=== PATIENT | male | born 1950 | race Caucasian/White ===

== ENCOUNTER 2018-02-06 18:09 | Observation (INO) | payer OTHER ==
[2018-02-06 19:01] LABS: ABS Basophils 0.1 10^3/ul (0-0.2); ABS Eosinophils 0.1 10^3/ul (0-0.6); ABS Monocytes 0.5 10^3/ul (0-0.8); ABS Neutrophils 8.9 10^3/ul (1.5-7.7); ABS Nucleated RBC 0 10^3/ul; Hematocrit 41 % (42-52); Lymphocyte % 9.4 % (25-47); Mean Corpuscular HGB Conc 34 g/dl (31-36); Mean Corpuscular Hemoglobin 28 pg (27-31); Mean Corpuscular Volume 83 fL (80-94); Mean Platelet Volume 7.7 um3 (7.4-10.4); Nucleated Red Blood Cells % 0; Platelet Count 175 10^3/ul (150-450); Red Blood Count 4.97 10^6/ul (4.0-5.4); Red Cell Distribution Width 16 % (10.5-15); White Blood Count 10.6 10^3/ul (3.5-10.8)
[2018-02-06 19:06] LABS: INR 0.9 (0.77-1.02)
[2018-02-06 19:20] LABS: EGFR Non-African American 80.6 (>60)
--- NOTE | 2018-02-06 19:43 | RAD ---
Indication: Left arm numbness. CT of the brain was performed without IV contrast. Ventricular structures are midline. No midline shift is noted. The extra-axial spaces are unremarkable. There is no evidence of intracranial mass or hemorrhage. No other high or low density lesions are identified. Mastoid air cells and paranasal sinuses are unremarkable. IMPRESSION: There is no evidence of intracranial mass or hemorrhage.
--- NOTE | 2018-02-06 19:52 | RAD ---
Indication: Left arm and numbness. CT of the cervical spine was obtained in the axial plane. Sagittal and coronal reconstructed images were obtained. The skull base demonstrates no fracture. Degenerative changes of the atlantoaxial joint is noted. At C2-C3 there is no disc protrusion. There is spondylitic ridge flattening the thecal sac. Right uncovertebral joint hypertrophy and right facet arthropathy narrows the right foramen. At C3-C4 there is spondylitic ridge flattening the thecal sac. Right uncovertebral joint hypertrophy and right facet arthropathy noted resulting in right foraminal stenosis. No definite central stenosis is noted. At C4-C5 there is no disc protrusion noted. Spondylitic ridge with broad-based protrusion flattens the thecal sac. There is right uncovertebral joint hypertrophy resulting in right foraminal stenosis at this level. At C5-C6 there is spondylitic ridge with right uncovertebral joint hypertrophy narrowing the right foramen. No central stenosis is noted. At C6-C7 spondylitic ridge flattens the thecal sac. Bilateral uncovertebral joint hypertrophy narrows both foramen. At C7-T1 spondylitic ridge with degenerative disc disease is noted. IMPRESSION: No fracture of the cervical spine is noted. Degenerative disc disease at multiple levels. Uncovertebral joint hypertrophy is noted at multiple levels predominantly on the right side with right foraminal stenosis at multiple levels.
[2018-02-06] MEDS ORDERED: Iodixanol* (CONTRAST) 320 MG/ML 100 ML SDV IV ONE (20:23)
--- NOTE | 2018-02-06 21:33 | RAD ---
Indication: Left arm numbness. Contrast: Administered 80.3 ml of VISAPAQUE 320 mg/ml CTA of the neck and head was performed after IV contrast administration. Coronal and sagittal reconstructed images were obtained. Minimal atherosclerotic aorta is noted. The origins of the great vessels are unremarkable. The common carotid arteries are grossly unremarkable. Calcific plaque is noted at the origin of the right internal carotid artery. The left internal carotid artery demonstrates minimal calcific plaque. Normal caliber internal carotid arteries are noted bilaterally. The vertebral arteries demonstrates normal caliber with no evidence of vertebral artery dissection. There is calcific plaque at the origin of the vertebral arteries bilaterally. Intracranial circulation demonstrates anterior and middle cerebral arteries to be unremarkable. No evidence of aneurysm dilatation is noted. No branch occlusion is identified. Vertebral artery, basilar artery and posterior cerebral arteries are grossly unremarkable. Inferior thyroid lobes are unremarkable. No evidence of soft tissue masses are noted. The lung apices are grossly unremarkable. IMPRESSION: Minimal calcific plaque at the origins of the vertebral arteries and internal carotid arteries. No evidence of carotid artery or vertebral artery dissection is noted. Intracranial circulation demonstrates no evidence of aneurysmal dilatation or branch occlusion.
[2018-02-06] MEDS ORDERED: Clopidogrel TAB* 75 MG PO ONE (21:35)
--- NOTE | 2018-02-06 21:52 | ED ---
Charlie Dai Angela, scribed for Russel Paz MD on 02/06/18 at 1831 . Neurological HPI - HPI Summary HPI Summary: This pt is a 67 y/o male, right hand dominant, presenting to [facility] c/o sudden onset of left arm and hand numbness/tingling since approximately 17:30 today. Pt reports he was sitting down watching TV when he noticed his left arm and hand were numb. He states that he has baseline and chronic numbness on the left 4th and 5th fingers and bottom of left arm after multiple surgeries. Denies left arm weakness, difficulty ambulating, LE numbness/weakness/tingling, slurred speech. He additionally notes neck pain, more on the right side, after driving from [place] to [place]. Pt has taken 2 baby aspirin today. NKDA. - History of Current Complaint Chief Complaint: EDNeurologicalDeficit Stated Complaint: LT SIDE NUMBNESS Time Seen by Provider: 02/06/18 18:23 Hx Obtained From: Patient Onset/Duration: Sudden Onset, Still Present Timing: Sudden Onset Current Severity: Moderate Neurological Deficit Location: LUE Pain Intensity: 0 Character: Numbness/Tingling - on LUE Aggravating: Nothing Alleviating: Nothing Associated Signs and Symptoms: Positive: Pain - neck pain, Numbness. Negative: Unsteady Gait, Headache, Weakness, Impaired Speech - Allergy/Home Medications Allergies/Adverse Reactions: Allergies Allergy/AdvReac Type Severity Reaction Status Date / Time No Known Allergies Allergy Verified 02/06/18 18:16 Home Medications: Home Medications Aspirin EC TAB* [Ecotrin EC Low Dose 81 MG*] 81 mg PO DAILY 02/06/18 [History Confirmed 02/06/18] Finasteride [Proscar] 5 mg PO DAILY 02/06/18 [History Confirmed 02/06/18] Metoprolol Tartrate TAB* [Lopressor TAB*] 50 mg PO DAILY 02/06/18 [History Confirmed 02/06/18] Multivitamins/Minerals TAB* [Theragran/minerals TAB*] 1 tab PO DAILY 02/06/18 [ History Confirmed 02/06/18] Nabumetone TAB* [Relafen TAB*] 500 mg PO BID 02/06/18 [History Confirmed ] Ramipril CAP* [Altace CAP*] 5 mg PO DAILY 02/06/18 [History Confirmed 02/06/18] Simvastatin TAB(NF) [Zocor(NF)] 20 mg PO DAILY 02/06/18 [History Confirmed 02/06] Tamsulosin CAP* [Flomax CAP*] 0.4 mg PO DAILY 02/06/18 [History Confirmed ] PMH/Surg Hx/FS Hx/Imm Hx Endocrine/Hematology History: Reports: Hx Diabetes - Borderline Denies: Hx Sickle Cell Disease Cardiovascular History: Reports: Hx Angina, Hx Coronary Artery Disease, Hx Hypercholesterolemia, Hx Hypertension, Other Cardiovascular Problems/Disorders - stents x2 Denies: Hx Myocardial Infarction, Hx Pacemaker/ICD, Hx Valvular Heart Disease Respiratory History: Denies: Hx Asthma, Hx Chronic Obstructive Pulmonary Disease (COPD), Other Respiratory Problems/Disorders GI History: Reports: Hx Gastroesophageal Reflux Disease - OCCASSIONALLY, Hx Hiatal Hernia - POSSIBLY, SLIDING HERNIA, UNDER CARE OF PCP Denies: Other GI Disorders History: Reports: Hx Benign Prostatic Hyperplasia Denies: Other Problems/Disorders Musculoskeletal History: Reports: Hx Arthritis - HANDS, SOME JOINTS, Other Musculoskeletal History - multiple surgeries to left elbow. unable to rotate. Sensory History: Reports: Hx Contacts or Glasses Denies: Hx Cataracts, Hx Hearing Aid Opthamlomology History: Reports: Hx Contacts or Glasses Denies: Hx Cataracts Neurological History: Denies: Other Neuro Impairments/Disorders - Surgical History Surgery Procedure, Year, and Place: stents x2. multiple surgeries to left elbow Hx Anesthesia Reactions: No Infectious Disease History: No Infectious Disease History: Denies: Traveled Outside the [place] in Last 30 Days - Family History Family History: Father: fatal stroke at age 63 - Social History Alcohol Use: Rare Substance Use Type: Reports: None Hx Tobacco Use: No Smoking Status (MU): Never Smoked Tobacco Review of Systems Negative: Fever, Chills Negative: Chest Pain Negative: Shortness Of Breath Negative: Abdominal Pain Musculoskeletal: Other - neck pain Neurological: Other - NEG: difficulty ambulating, slurred speech Positive: Paresthesia, Numbness. Negative: Weakness All Other Systems Reviewed And Are Negative: Yes Physical Exam - Summary Physical Exam Summary: Appearance: The patient is well-nourished in no acute distress and in no acute pain. Skin: The skin is warm and dry and skin color reflects adequate perfusion. HEENT: The head is normocephalic and atraumatic. The pupils are equal and reactive. The conjunctivae are clear and without drainage. Nares are patent and without drainage. Mouth reveals moist mucous membranes and the throat is without erythema and exudate. The external ears are intact. The ear canals are patent and without drainage. The tympanic membranes are intact. Neck: the neck is supple with full range of motion and non-tender. There are no carotid bruits. There is no neck vein distension. Respiratory: Chest is non-tender. Lungs are clear to auscultation and breath sounds are symmetrical and equal. Cardiovascular: Heart is regular rate and rhythm. There is no murmur or rub auscultated. There is no peripheral edema and pulses are symmetrical and equal. No bruits. Abdomen: The abdomen is soft and non-tender. There are normal bowel sounds heard in all four quadrants and there is no organomegaly palpated. Musculoskeletal: There is no back tenderness noted. Extremities are non-tender with full range of motion. There is good capillary refill. There is no peripheral edema or calf tenderness elicited. Neurological: Patient is alert and oriented to person, place and time. The patient has symmetrical motor strength in all four extremities. Cranial nerves are grossly intact. Deep tendon reflexes are symmetrical and equal in all four extremities. Subjective decreased sensation on LUE. NIH scale of 1. Psychiatric: The patient has an appropriate affect and does not exhibit any anxiety or depression. Triage Information Reviewed: Yes Vital Signs On Initial Exam: Initial Vitals Temp Pulse Resp BP Pulse Ox 99.2 F 88 18 152/83 97 02/06/18 18:12 02/06/18 18:12 02/06/18 18:12 02/06/18 18:12 02/06/18 18:12 Vital Signs Reviewed: Yes Diagnostics - Vital Signs Vital Signs Temp Pulse Resp BP Pulse Ox 02/06/18 18:12 99.2 F 88 18 152/83 97 - Laboratory Lab Results: Lab Results 02/06/18 02/06/18 02/06/18 Range/Units 18:51 18:51 18:51 WBC 10.6 (3.5-10.8) 10^3/ul RBC 4.97 (4.0-5.4) 10^6/ul Hgb 14.0 (14.0-18.0) g/dl Hct 41 L (42-52) % MCV 83 (80-94) fL MCH 28 (27-31) pg MCHC 34 (31-36) g/dl RDW 16 H (10.5-15) % Plt Count 175 (150-450) 10^3/ul MPV 7.7 (7.4-10.4) um3 Neut % (Auto) 84.0 H (38-83) % Lymph % (Auto) 9.4 L (25-47) % Moore % (Auto) 5.0 (0-7) % Eos % (Auto) 1.0 (0-6) % Baso % (Auto) 0.6 (0-2) % Absolute Neuts (auto) 8.9 H (1.5-7.7) 10^3/ul Absolute Lymphs (auto) 1.0 (1.0-4.8) 10^3/ul Absolute Monos (auto) 0.5 (0-0.8) 10^3/ul Absolute Eos (auto) 0.1 (0-0.6) 10^3/ul Absolute Basos (auto) 0.1 (0-0.2) 10^3/ul Absolute Nucleated RBC 0 10^3/ul Nucleated RBC % 0 INR (Anticoag Therapy) 0.90 (0.77-1.02) Sodium 134 L (139-145) mmol/L Potassium 4.0 (3.5-5.0) mmol/L Chloride 100 L (101-111) mmol/L Carbon Dioxide 24 (22-32) mmol/L Anion Gap 10 (2-11) mmol/L BUN 17 (6-24) mg/dL Creatinine 0.93 (0.67-1.17) mg/dL Est GFR ( Amer) 103.6 (>60) Est GFR (Non-Af Amer) 80.6 (>60) BUN/Creatinine Ratio 18.3 (8-20) Glucose 186 H (70-100) mg/dL Lactic Acid (0.5-2.0) mmol/L Calcium 9.0 (8.6-10.3) mg/dL Total Bilirubin 0.40 (0.2-1.0) mg/dL AST 18 (13-39) U/L ALT 15 (7-52) U/L Alkaline Phosphatase 67 (34-104) U/L Troponin I 0.00 (<0.04) ng/mL Total Protein 6.9 (6.4-8.9) g/dL Albumin 4.0 (3.2-5.2) g/dL Globulin 2.9 (2-4) g/dL Albumin/Globulin Ratio 1.4 (1-3) /02/18 Range/Units 18:52 WBC (3.5-10.8) 10^3/ul RBC (4.0-5.4) 10^6/ul Hgb (14.0-18.0) g/dl Hct (42-52) % MCV (80-94) fL MCH (27-31) pg MCHC (31-36) g/dl RDW (10.5-15) % Plt Count (150-450) 10^3/ul MPV (7.4-10.4) um3 Neut % (Auto) (38-83) % Lymph % (Auto) (25-47) % Moore % (Auto) (0-7) % Eos % (Auto) (0-6) % Baso % (Auto) (0-2) % Absolute Neuts (auto) (1.5-7.7) 10^3/ul Absolute Lymphs (auto) (1.0-4.8) 10^3/ul Absolute Monos (auto) (0-0.8) 10^3/ul Absolute Eos (auto) (0-0.6) 10^3/ul Absolute Basos (auto) (0-0.2) 10^3/ul Absolute Nucleated RBC 10^3/ul Nucleated RBC % INR (Anticoag Therapy) (0.77-1.02) Sodium (139-145) mmol/L Potassium (3.5-5.0) mmol/L Chloride (101-111) mmol/L Carbon Dioxide (22-32) mmol/L Anion Gap (2-11) mmol/L BUN (6-24) mg/dL Creatinine (0.67-1.17) mg/dL Est GFR ( Amer) (>60) Est GFR (Non-Af Amer) (>60) BUN/Creatinine Ratio (8-20) Glucose (70-100) mg/dL Lactic Acid 2.0 (0.5-2.0) mmol/L Calcium (8.6-10.3) mg/dL Total Bilirubin (0.2-1.0) mg/dL AST (13-39) U/L ALT (7-52) U/L Alkaline Phosphatase (34-104) U/L Troponin I (<0.04) ng/mL Total Protein (6.4-8.9) g/dL Albumin (3.2-5.2) g/dL Globulin (2-4) g/dL Albumin/Globulin Ratio (1-3) Result Diagrams: 02/06/18 18:51 02/06/18 18:51 Lab Statement: Any lab studies that have been ordered have been reviewed, and results considered in the medical decision making process. - CT Brain CT CT Interpretation: No Acute Changes - IMPRESSION: There is no evidence of intracranial mass or hemorrhage. Dr. Paz has reviewed this radiology report. CT Interpretation Completed By: Radiologist Cervical spine CT CT Interpretation: No Acute Changes - IMPRESSION: No fracture of the cervical spine is noted. Degenerative disc disease at multiple levels. Uncovertebral joint hypertrophy is noted at multiple levels predominantly on the right side with right foraminal stenosis at multiple levels. Dr. Paz has reviewed this radiology report. CT Interpretation Completed By: Radiologist CTA Head/neck CT Interpretation: No Acute Changes - IMPRESSION: Minimal calcific plaque at the origins of the vertebral arteries and internal carotid arteries. No evidence of carotid artery or vertebral artery dissection is noted. Intracranial circulation demonstrates no evidence of aneurysmal dilatation or branch occlusion. Dr. Paz has reviewed this radiology report. CT Interpretation Completed By: Radiologist - EKG 18:40 Cardiac Rate: NL - at 78 bpm EKG Rhythm: Sinus Rhythm NIH Scale - NIH Scale Level of Consciousness: Alert/Keenly Responsive Ask Patient the Month and His/Her Age: Both Correct Ask Pt to Open/Close Eyes and Agricultural Purchasing Agent/Release Non-Paretic Hand: Both Correctly Best Gaze (Only Horizontal Eye Movement): Normal Visual Field Testing: No Visual Loss Facial Paresis-Pt to Smile & Close Eyes or Grimace Symmetry: Normal/Symmetrical Motor Function - Right Arm: No Drift-Holds 10 Seconds Motor Function - Left Arm: No Drift-Holds 10 Seconds Motor Function - Right Leg: No Drift-Holds 10 Seconds Motor Function - Left Leg: No Drift-Holds 10 Seconds Limb Ataxia-Must be out of Proportion to Weakness Present: Absent Sensory (Use Pinprick to Test Arms/Legs/Trunk/Face): Pinprick Less on Affected Best Language (Describe Picture, Name Items): No Aphasia Dysarthria (Read Several Words): Normal Extinction and Inattention: No Abnormality Total Score: 1 Course/Dx - Course Course Of Treatment: Mr. Mast presents complaining of left arm numbness and tingling which started at 1730 hrs. He was sitting on the couch with his arm propped on the side and went to move it and noticed the tingling. He chronically has numbness in his left fourth and fifth fingers and medial aspect of his arm related to surgery on his medial elbow. Now than numbness and tingling has extended to the thumb index and middle finger as well as the lateral aspect of his forearm. He does have a lot of neck pain complaining of having driven up from [place] staying at motels and having increasing neck pain during the trip which has continued subsequently for the few days. His NIH stroke scale is 1 for decreased sensation subjectively in the left forearm. He is not a TPA candidate secondary to a low NIH stroke scale and a low impact deficit. CT and CTA were negative as were labs and EKG. He is being admitted to the hospitalist service for further workup. - Diagnoses Provider Diagnoses: Arm paresthesia, left - Physician Notifications Discussed Care Of Patient With: Mery Shaffer Time Discussed With Above Provider: 20:02 Instructed by Provider To: Other - I discussed pt care with Dr. hSaffer, neurologist, who reports to do a Telestroke. [20:41] I discussed with Dr. Bennett, neurologist from [facility], who reports pt is not a candidate for tpa. [20:49] I spoke with Dr. Pablo, hospitalist, who accepted the pt for admission. Discharge - Sign-Out/Discharge Documenting (check all that apply): Discharge/Admit/Transfer - Admit - Discharge Plan Condition: Stable Disposition: ADMITTED TO [facility] Referrals: Julio Almeida MD [Primary Care Provider] - - Billing Disposition and Condition Condition: STABLE Disposition: Admitted to [facility] The documentation as recorded by the Charlie gilliam Angela accurately reflects the service I personally performed and the decisions made by me, Russel Paz MD.
[2018-02-06] MEDS ORDERED: Acetaminophen TAB* 325 MG PO PRN (22:00)
[2018-02-06] MEDS: Heparin VIAL(*) 5000 UNITS/ML VIAL (FIVE THOUSAND) SUBCUT SCH (23:09)
[2018-02-07 00:22] LABS: Urine Appearance Clear; Urine Blood Negative (Negative); Urine Color Straw; Urine Ketones Negative (Negative); Urine Protein Negative (Negative); Urine Specific Gravity 1.023 (1.010-1.030); Urine Urobilinogen Negative (Negative)
[2018-02-07] MEDS: Heparin VIAL(*) 5000 UNITS/ML VIAL (FIVE THOUSAND) SUBCUT SCH ×2 (05:17→15:35)
--- NOTE | 2018-02-07 07:37 | HP ---
CC: Dr. Almeida; Dr. Hermosillo; Dr. Mery Shaffer * HISTORY AND PHYSICAL: DATE OF ADMISSION: 02/06/18 TIME OF EVALUATION: 9 p.m. PRIMARY CARE PROVIDER: Dr. Almeida. TRIM ATTACHER: Dr. Hermosillo. CONSULTING NEUROLOGIST: Dr. Mery Shaffer. CHIEF COMPLAINT: My left arm is numb. HISTORY OF PRESENT ILLNESS: Mr. Mast is a 67-year-old male with a past medical history of coronary artery disease, status post bare metal stents to his RCA in 2010, hypertension, GERD, hiatal hernia, hyperlipidemia, BPH, status post multiple surgeries to his left elbow who presents to the emergency room with complaints of sudden onset of left arm numbness. The patient states that many years ago he had a fall on concrete and broke his left elbow. 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 He underwent an ulnar nerve transposition, excision of heterotropic bone from proximal ulna, proximal radius, distal humerus and radical excision of capsule by Dr. Keaton Bass in 2012. He states that since the surgery, he has had chronic numbness on his left fourth and fifth fingers extending to the medial aspect of his hand and forearm all the way up to his elbow. The patient just returned from a trip to [place] and it took him 2-1/[address] He stopped to sleep in hotels and states that he developed a neck "kink." He has been taking antiinflammatories for it but the neck continues to bother him. Today, he was sitting on his recliner watching TV when around 6 p.m. he developed sudden onset of left arm numbness from his shoulder down and he states that this is new to him, never had it happened before. He took an extra aspirin, waited 10 minutes but as the symptoms persisted he came to the emergency room for further evaluation. He denies any other neurological deficits. Despite the numbness he had preserved movement to his left arm. The patient denies any changes to his face, to his leg, no localized weakness, no speech or vision changes. The patient denies headache, nausea, vomiting, diarrhea, shortness of breath, cough or urinary complaints. PAST MEDICAL HISTORY: 1. Coronary artery disease, status post two bare-metal stents to his RCA. 2. Hypertension. 3. GERD. 4. Hiatal hernia. 5. Hyperlipidemia. 6. BPH. PAST SURGICAL HISTORY: 1. Multiple left elbow surgeries as described above. 2. Status post tonsillectomy. MEDICATIONS: 1. Aspirin 81 mg p.o. daily. 2. Finasteride 5 mg p.o. daily. 3. Metoprolol tartrate 50 mg p.o. daily. 4. Multivitamins 1 tablet p.o. daily. 5. Nabumetone 500 mg p.o. b.i.d. 6. Ramipril 5 mg p.o. daily. 7. Simvastatin 20 mg p.o. daily. 8. Tamsulosin 0.4 mg p.o. daily. ALLERGIES: No known drug allergies. FAMILY HISTORY: The patient has a strong family history of stroke. His father of a stroke in his 60s. His brother had a stroke in his 50s and his grandfather also had a stroke in his 50s. SOCIAL HISTORY: The patient denies any history of tobacco or alcohol or drug use. 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 Surrogate decision maker is his Heather Mast, phone number is [phone]. REVIEW OF SYSTEMS: A 14-point review of systems was performed and all the pertinent negative and positive findings are in the HPI. PHYSICAL EXAMINATION GENERAL: The patient is a pleasant gentleman sitting up in the ED stretcher in no acute distress. VITAL SIGNS: Temperature 99.2, heart rate is 68, respiratory rate is 13, oxygen saturation is 96% on room air, blood pressure is 132/79. HEENT: Pupils are equal, extraocular movements intact. Moist mucous membranes. NECK: No JVD. No audible carotid bruits. CHEST: Breath sounds present bilaterally with no added sounds. CVS: Normal S1, S2, regular rate and rhythm. ABDOMEN: Soft. Bowel sounds present. EXTREMITIES: No edema. NEUROLOGIC: He is alert and oriented x3. Face is symmetric. Cranial nerves II through XII are grossly intact. Power is 5/5 in both upper extremities and right lower extremity. Left lower extremity power 3/5 but this is limited due to hip pain that the patient states is chronic due to known severe arthritis. Finger-to- nose is normal in both sides. The only neurological change in my physical examination is changing sensation on the left side from his hand all the way up to this left shoulder. LABORATORY AND IMAGING DATA: The patient had a CBC that showed WBC of 10.6, hemoglobin of 14, hematocrit of 41. Platelets of 175 with 84% neutrophils. INR was 0.9. Chemistry showed a sodium of 134, potassium of 4, chloride of 100. Bicarb was 24, BUN is 17, creatinine of 0.93, glucose of 186, lactic acid of 2, calcium 9.0. LFTs are normal. Troponin was 0. CT of the brain without contrast showed no evidence of intracranial mass or hemorrhage. CT of the cervical spine showed no fracture of the cervical spine is noted. Degenerative disk disease at multiple levels. Uncovertebral joint hypertrophy is noted at multiple levels predominantly on the right side with right foraminal stenosis at multiple levels. CTA of the head and neck showed minimal calcific plaque at the origins of the vertebral arteries and internal carotid arteries. No evidence of carotid artery or vertebral artery dissection is noted. Intracranial circulation demonstrates no evidence of aneurysmal dilatation or branch occlusion. The patient had an EKG done on 02/06/18 at 1840 that showed normal sinus rhythm at 78 beats per minute with T-wave inversions in III and flat T waves in aVF and those are unchanged from his prior EKG from 2011. ASSESSMENT AND PLAN: Mr. Mast is a 67-year-old male with past medical history of coronary artery disease, status post two bare metal stents to the RCA , hypertension, gastroesophageal reflux disease, hiatal hernia, dyslipidemia, benign prostatic hyperplasia, status post 5 surgeries to his left elbow with chronic numbness in the ulnar nerve distribution who presents to the emergency room with complaints of left arm numbness from his shoulder down. 1. CVA versus cervical radiculopathy: The patient had a recent trip to [place] and is complaining of worsening cervicalgia and his worsening left arm numbness at his point could be related to a cervical radiculopathy but I am concerned with sudden onset of his symptoms that could suggest an ischemic event. His workup so far in the emergency room is negative and he will be admitted to telemetry floor as observation for further workup. We are going to check a lipid profile, hemoglobin A1c as the patient was mildly hypoglycemic in the emergency room. An echocardiogram with bubble study and an MRI of the brain without contrast. If this was a stroke, it is probably a small right parietal one and it might not be seen in an MRI but it is still worth pursuing it. Neurology consultation was requested with Dr. Shaffer. As per emergency room provider, he had a telemedicine consultation with [facility] neurologist and it was felt that the patient was not a candidate for TPA as his NIH stroke scale was only 1 and his left arm numbness was already showing signs of improvement. The patient is chronically on low-dose aspirin and statin. I discussed with Dr. Shaffer and at this point we are going to add Plavix until his workup is completed. The patient will be monitored on Telemetry and he will also have neurological checks q.2 hours. 2. Coronary artery disease: Appears to be stable. We will continue his aspirin, metoprolol and statin. 3. Hypertension: Controlled. We will continue metoprolol. 4. BPH: The patient has no complaints at this time. We will continue finasteride and tamsulosin. 5. DVT prophylaxis: The patient has a score of 2 on DVT Prophylaxis Risk Assessment Guide and he will be started on subcutaneous heparin. 6. Code status: Full. TIME SPENT: Approximately 60 minutes was spent with the patient and interview, medical records review, physical examination to complete this admission; more than half this time was spent [id number] with patient in coordination of care. [id number]/[facility] #: [id number] CAITLIN
[2018-02-07] MEDS ORDERED: Finasteride TAB* 5 MG PO SCH (09:00)
[2018-02-07] MEDS ORDERED: Tamsulosin CAP* 0.4 MG PO SCH (09:00)
[2018-02-07] MEDS ORDERED: Atorvastatin* 10 MG TAB PO SCH (09:00)
[2018-02-07] MEDS ORDERED: Clopidogrel TAB* 75 MG PO SCH (09:00)
[2018-02-07] MEDS ORDERED: Ramipril CAP* 5 MG PO SCH (09:00)
[2018-02-07] MEDS ORDERED: Multivitamins/Minerals TAB PO SCH (09:00)
[2018-02-07] MEDS ORDERED: Nabumetone TAB* 500 MG PO SCH (09:00)
[2018-02-07] MEDS ORDERED: Metoprolol Tartrate TAB* 50 mg PO SCH (09:00)
[2018-02-07] MEDS ORDERED: Aspirin EC TAB* 81 MG TAB.EC PO SCH (09:00)
--- NOTE | 2018-02-07 11:29 | RAD ---
HISTORY: CVA COMPARISONS: February 06 TECHNIQUE: The following sequences were obtained of the head: Sagittal T1-weighted images, axial T2-weighted images, axial FLAIR images, axial susceptibility weighted images, axial T1-weighted images. Additionally, axial diffusion-weighted images were obtained with calculated apparent diffusion coefficients. FINDINGS: HEMORRHAGE/INFARCT: There is a small focus of restricted diffusion within the cortex of the right postcentral gyrus. Elsewhere, there is no hemorrhage or acute infarct. MASSES/SHIFT: There is no mass or shift. EXTRA-AXIAL SPACES/MENINGES: There are no extra-axial fluid collections. SULCI AND VENTRICLES: The sulci and ventricles are normal in size and position for the patient's stated age. CEREBRUM: There are few scattered small foci of elevated T2/FLAIR signal within the periventricular and subcortical white matter. BRAINSTEM: There are no focal parenchymal abnormalities. CEREBELLUM: There are no focal parenchymal abnormalities. The cerebellar tonsils are normal in size and position. SELLA: The sella is normal. PINEAL: The pineal region is clear. CP ANGLE/TEMPORAL BONES: The labyrinthine structures are grossly normal. VESSELS: Normal flow-voids are noted within the visualized vertebral vasculature. DIFFUSION ABNORMALITIES: As noted above, there is a small focus of restricted diffusion within the cortex of the post central gyrus on the right. PARANASAL SINUSES/MASTOIDS: The paranasal sinuses are clear. ORBITS: The orbits are unremarkable. BONES AND SOFT TISSUE: No bone or soft tissue abnormalities are noted. OTHER: None IMPRESSION: RESTRICTED DIFFUSION WITHIN THE CORTEX OF THE POST CENTRAL GYRUS ON THE RIGHT CONSISTENT WITH SUBACUTE NONHEMORRHAGIC INFARCT.
--- NOTE | 2018-02-07 11:56 | ECHO ---
Patient: TEE CAT [facility] Rec#: [id number] : 1950 Date: 02/07/2018 Age: 67y Height: 175.26 cm / 69.0 in Weight: 74.84 kg / 164.9 lbs Sex: M BSA: 1.9 Room#: 432 Admit Date#: 02/06/2018 Type: Inpatient Referring: Page Basilio MD Reading: Jv Braden DO Reading: Jv Braden DO Technician Inventory Specialist: Anh Rae RDCS CC: Julio Almeida MD Transthoracic Echocardiogram Indication: CVA / TIA. BP: 117/65 HR: 70 Rhythm: NSR Findings History: CAD, s/p 2 RCA stents, DM, HTN, HLD, and hiatal hernia. Technical Comments: The study quality is fair. Completed at 1015. Left Ventricle: The left ventricular chamber size is normal. There is a prominent septal knuckle. Global left ventricular wall motion and contractility are within normal limits. There is normal left ventricular systolic function. The estimated ejection fraction is 60-65%. There is no consistent Doppler evidence of clinically significant diastolic dysfunction. Left Atrium: The left atrium is mildly dilated. Right Ventricle: The right ventricular chamber size and systolic function are within normal limits. Right Atrium: The right atrium is mildly dilated. Interatrial septum appears intact without evidence of shunting. The bubble study is negative. A patent foramen ovale is not demonstrated with color Doppler and agitated contrast. Aortic Valve: The aortic valve is trileaflet. The aortic valve leaflets are mildly thickened. There is no evidence of aortic regurgitation. There is no evidence of aortic stenosis. Mitral Valve: The mitral valve leaflets are mildly thickened. There is mild mitral regurgitation. There is no evidence of mitral stenosis. Tricuspid Valve: The tricuspid valve leaflets are normal. There is trace to mild tricuspid regurgitation. No pulmonary hypertension is noted. There is no tricuspid stenosis. Pulmonic Valve: The pulmonic valve appears normal. There is mild pulmonic regurgitation. There is no pulmonic stenosis. Pericardium: There is no significant pericardial effusion. Aorta: There is mild dilatation of the ascending aorta. There is no dilatation of the aortic arch. The aortic root is normal in size. Pulmonary Artery: The main pulmonary artery is not well visualized. Venous: The inferior vena cava is dilated. There is a greater than 50% respiratory change in the inferior vena cava dimension. Contrast: Normal saline was used as contrast for the bubble study. Images 10 and 11. Intravenous contrast was used to help determine presence of intracardiac shunting. Conclusions The left ventricular chamber size is normal. There is a prominent septal knuckle. Global left ventricular wall motion and contractility are within normal limits. There is normal left ventricular systolic function. The estimated ejection fraction is 60-65%. The left atrium is mildly dilated. The right ventricular chamber size and systolic function are within normal limits. No more than mild valvular regurgitation noted The agitated saline "bubble study" is negative. There is mild dilatation of the ascending aorta. Compared to prior study from 09/2013, no clinically significant changes noted. Bubble study performed this study. Measurements Name Value Normal Range RVIDd (AP) 2D 3.3 cm (0.9 - 2.6) RVDdMajor (2D) 4.2 cm (2.2 - 4.4) RAd ISD 4CH 5 cm (3.4 - 4.9) RA (A4C)W 3.8 cm (2.9 - 4.6) IVSd (2D) 1 cm (0.6 - 1) LVPWd (2D) 1 cm (0.6 - 1) LVIDd (2D) 4.4 cm (3.6 - 5.4) LVIDs (2D) 2.3 cm - LV FS (2D) 49 % (25 - 45) Aortic Annulus 2 cm (1.4 - 2.6) Ao root diameter (2D) 3.2 cm (2.1 - 3.5) Ascending Ao 3.8 cm (2.1 - 3.4) Aortic arch 2.4 cm (1.8 - 3.4) LA dimension (AP) 2D 3.8 cm (2.3 - 3.8) LAd ISD 4CH 5.4 cm (2.9 - 5.3) LA ISD 4CH W 4.6 cm (2.5 - 4.5) Name Value Normal Range LA ESV SP 4CH (A/L) 49 ml - LA ESV SP 2CH (A/L) 60 ml - LA ESV BP (A/L) 57 ml - LA ESV BP (A/L) index 30 ml/m2 - LA ESV SP 4CH (MOD) 45 ml - LA ESV SP 2CH (MOD) 56 ml - Name Value Normal Range MV E-wave Vmax 0.72 m/sec - MV deceleration time 230 msec - MV A-wave Vmax 0.62 m/sec - MV E:A ratio 1.17 ratio - LV septal e' Vmax 0.06 m/sec - LV lateral e' Vmax 0.11 m/sec - LV E:e' septal ratio 12 ratio - LV E:e' lateral ratio 6.55 ratio - Name Value Normal Range AV Vmax 1.1 m/sec - AV VTI 23.62 cm - AV peak gradient 4.5 mmHg - AV mean gradient 2.97 mmHg - LVOT Vmax 0.97 m/sec - LVOT VTI 21.85 cm - LVOT peak gradient 3.75 mmHg - LVOT mean gradient 2.01 mmHg - SAUMYA Vmax 0.83 m/sec - Name Value Normal Range TR Vmax 2.4 m/sec - TR peak gradient 23 mmHg - RAP 8 mmHg - RVSP 31 mmHg - IVC diameter 2.4 cm - Name Value Normal Range PV Vmax 0.88 m/sec - PV peak gradient 3.12 mmHg - KS end-diastolic Vmax 0.9 m/sec -
--- NOTE | 2018-02-07 14:58 | PN ---
Subjective Date of Service: 02/07/18 Interval History: Numbness L arm nearly gone, better than yesterday. No new c/o. Residual numbness L 4th and 5th fingers from prior L elbow surgeries. Objective Active Medications: Acetaminophen (Tylenol Tab*) 650 mg PO Q6H PRN PRN Reason: pain/fever Aspirin (Aspirin Ec Tab*) 81 mg PO DAILY [facility] Last Admin: 02/07/18 09:54 Dose: 81 mg Atorvastatin Calcium (Lipitor*) 10 mg PO DAILY [facility] Last Admin: 02/07/18 09:53 Dose: 10 mg Clopidogrel Bisulfate (Plavix Tab*) 75 mg PO DAILY [facility] Last Admin: 02/07/18 09:54 Dose: 75 mg Finasteride (Proscar Tab*) 5 mg PO DAILY [facility] Last Admin: 02/07/18 09:54 Dose: 5 mg Heparin Sodium (Porcine) (Heparin Vial(*)) 5,000 units SUBCUT Q8HR [facility] Last Admin: 02/07/18 05:17 Dose: 5,000 units Metoprolol Tartrate (Lopressor Tab*) 50 mg PO DAILY [facility] Last Admin: 02/07/18 09:54 Dose: 50 mg Multivitamins/Minerals (Theragran/Minerals Tab*) 1 tab PO DAILY [facility] Last Admin: 02/07/18 09:53 Dose: 1 tab Nabumetone (Relafen Tab*) 500 mg PO BID [facility] Last Admin: 02/07/18 09:54 Dose: 500 mg Ramipril (Altace Cap*) 5 mg PO DAILY [facility] Last Admin: 02/07/18 09:53 Dose: 5 mg Tamsulosin HCl (Flomax Cap*) 0.4 mg PO DAILY [facility] Last Admin: 02/07/18 09:54 Dose: 0.4 mg Vital Signs - 8 hr 02/07/18 07:14 Temperature 98.0 F Pulse Rate 70 Respiratory 16 Rate Blood Pressure 133/78 (mmHg) O2 Sat by Pulse 99 Oximetry Oxygen Devices in Use Now: None Appearance: Alert, standing by his bed. In good spirits. Looks comfortable. Eyes: No Scleral Icterus Extremities: No Edema, No Clubbing, Cyanosis, - - R tibia hard proturberance in mid-shaft, about 2 cm diameter. No calf tenderness, no edema. Skin: No Rash or Ulcers, No Nodules or Sclerosis, - Neurological: Alert and Oriented x 3, NL Sensation - Handgrips strong BL. No tremor. No facial asymmetry. Result Diagrams: 02/06/18 18:51 02/06/18 18:51 Additional Lab and Data: Lab Results 02/06/18 02/06/18 02/06/18 Range/Units 18:51 18:51 18:51 WBC 10.6 (3.5-10.8) 10^3/ul RBC 4.97 (4.0-5.4) 10^6/ul Hgb 14.0 (14.0-18.0) g/dl Hct 41 L (42-52) % MCV 83 (80-94) fL MCH 28 (27-31) pg MCHC 34 (31-36) g/dl RDW 16 H (10.5-15) % Plt Count 175 (150-450) 10^3/ul MPV 7.7 (7.4-10.4) um3 Neut % (Auto) 84.0 H (38-83) % Lymph % (Auto) 9.4 L (25-47) % [place] % (Auto) 5.0 (0-7) % Eos % (Auto) 1.0 (0-6) % Baso % (Auto) 0.6 (0-2) % Absolute Neuts (auto) 8.9 H (1.5-7.7) 10^3/ul Absolute Lymphs (auto) 1.0 (1.0-4.8) 10^3/ul Absolute Monos (auto) 0.5 (0-0.8) 10^3/ul Absolute Eos (auto) 0.1 (0-0.6) 10^3/ul Absolute Basos (auto) 0.1 (0-0.2) 10^3/ul Absolute Nucleated RBC 0 10^3/ul Nucleated RBC % 0 INR (Anticoag Therapy) 0.90 (0.77-1.02) Sodium 134 L (139-145) mmol/L Potassium 4.0 (3.5-5.0) mmol/L Chloride 100 L (101-111) mmol/L Carbon Dioxide 24 (22-32) mmol/L Anion Gap 10 (2-11) mmol/L BUN 17 (6-24) mg/dL Creatinine 0.93 (0.67-1.17) mg/dL Est GFR ( Amer) 103.6 (>60) Est GFR (Non-Af Amer) 80.6 (>60) BUN/Creatinine Ratio 18.3 (8-20) Glucose 186 H (70-100) mg/dL Lactic Acid (0.5-2.0) mmol/L Calcium 9.0 (8.6-10.3) mg/dL Total Bilirubin 0.40 (0.2-1.0) mg/dL AST 18 (13-39) U/L ALT 15 (7-52) U/L Alkaline Phosphatase 67 (34-104) U/L Troponin I 0.00 (<0.04) ng/mL Total Protein 6.9 (6.4-8.9) g/dL Albumin 4.0 (3.2-5.2) g/dL Globulin 2.9 (2-4) g/dL Albumin/Globulin Ratio 1.4 (1-3) /02/18 Range/Units 18:52 WBC (3.5-10.8) 10^3/ul RBC (4.0-5.4) 10^6/ul Hgb (14.0-18.0) g/dl Hct (42-52) % MCV (80-94) fL MCH (27-31) pg MCHC (31-36) g/dl RDW (10.5-15) % Plt Count (150-450) 10^3/ul MPV (7.4-10.4) um3 Neut % (Auto) (38-83) % Lymph % (Auto) (25-47) % [place] % (Auto) (0-7) % Eos % (Auto) (0-6) % Baso % (Auto) (0-2) % Absolute Neuts (auto) (1.5-7.7) 10^3/ul Absolute Lymphs (auto) (1.0-4.8) 10^3/ul Absolute Monos (auto) (0-0.8) 10^3/ul Absolute Eos (auto) (0-0.6) 10^3/ul Absolute Basos (auto) (0-0.2) 10^3/ul Absolute Nucleated RBC 10^3/ul Nucleated RBC % INR (Anticoag Therapy) (0.77-1.02) Sodium (139-145) mmol/L Potassium (3.5-5.0) mmol/L Chloride (101-111) mmol/L Carbon Dioxide (22-32) mmol/L Anion Gap (2-11) mmol/L BUN (6-24) mg/dL Creatinine (0.67-1.17) mg/dL Est GFR ( Amer) (>60) Est GFR (Non-Af Amer) (>60) BUN/Creatinine Ratio (8-20) Glucose (70-100) mg/dL Lactic Acid 2.0 (0.5-2.0) mmol/L Calcium (8.6-10.3) mg/dL Total Bilirubin (0.2-1.0) mg/dL AST (13-39) U/L ALT (7-52) U/L Alkaline Phosphatase (34-104) U/L Troponin I (<0.04) ng/mL Total Protein (6.4-8.9) g/dL Albumin (3.2-5.2) g/dL Globulin (2-4) g/dL Albumin/Globulin Ratio (1-3) Assess/Plan/Problems-Billing Assessment: - Patient Problems (1) CVA (cerebral vascular accident) Current Visit: Yes Status: Acute Code(s): I63.9 - CEREBRAL INFARCTION, UNSPECIFIED SNOMED Code(s): 440856603 Comment: Non-hemorrhagic CVA R post-central gyrus on MRI scan. Discussed with Dr. Fernandes. Continue ASA and clopidogrel for 1 month, then clopidogrel alone. (2) CAD (coronary artery disease) Current Visit: Yes Status: Acute Code(s): I25.10 - ATHSCL HEART DISEASE OF [place] CORONARY ARTERY W/O ANG PCTRS SNOMED Code(s): 98346304 Comment: Continue ASA, clopidogrel (for 30 days), metoprolol, statin. (3) HTN (hypertension) Current Visit: Yes Status: Acute Code(s): I10 - ESSENTIAL (PRIMARY) HYPERTENSION SNOMED Code(s): 51788129 Comment: Continue ramipril, metoprolol.
[2018-02-07 16:53] VITALS: BP 110/67
--- NOTE | 2018-02-08 01:10 | CONS ---
CC: Dr. Almeida * NEUROLOGY CONSULTATION: DATE OF CONSULT: 02/07/18 LOCATION: He is an inpatient in room 432. REFERRING PROVIDER: Dr. Vickers. CHIEF COMPLAINT: Left arm numbness. HISTORY OF PRESENT ILLNESS: Jose Mast is a 67-year-old right-handed man who was in his usual state of health yesterday at home when his left arm suddenly went numb. He has chronic numbness in ulnar distribution of the left hand from multiple elbow surgeries and subsequent ulnar neuropathy, but this time he felt like his whole arm from at least his elbow down went numb. He had no problems using the arm over and above his chronic problems with it. Specifically, it did not feel weak or any particularly clumsy. He did not notice any numbness of his face or legs nor any difficulty with speech or walking. He presented to the emergency room particularly as he has a very strong family history of strokes. In the emergency room, his exam by Dr. Ornelas was notable for diminished sensation diffusely in the left arm all the way to the shoulder. He was admitted for further evaluation. Today, he feels that the numbness is better than it was yesterday, but still not the way it was before yesterday. There is a little bit of increased numbness in the dorsal aspect of the left forearm. There is no change in coordination or strength of that arm. He still has no symptoms in the face or lower extremities. There is no prior history of cerebrovascular events. PAST MEDICAL HISTORY: Notable for hypertension; borderline diabetes; gastroesophageal reflux; hyperlipidemia; coronary artery disease, status post stenting; BPH. MEDICATIONS: At home consist of: 1. Aspirin 81 mg p.o. daily. 2. Finasteride 5 mg p.o. daily. 3. Metoprolol 50 mg p.o. daily. 4. Nabumetone 500 mg p.o. b.i.d. 5. Ramipril 5 mg p.o. daily. 6. Simvastatin 20 mg p.o. daily. 7. Tamsulosin 0.4 mg p.o. daily. ALLERGIES: He does not have any drug allergies. FAMILY HISTORY: Notable for 3 family members suffering strokes, younger brother after complications of stroke in his 50s. SOCIAL HISTORY: He does not smoke. He does not drink alcohol. 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 REVIEW OF SYSTEMS: Negative for headaches, falls, difficulty with speech or word- finding, change in gait. He has chronic left hip pain. He has recurrent retrosternal pressure felt to be gastrointestinal. He is in the midst of a gastro-intestinal workup at the [facility]. There is no history of deep vein thrombosis. He has noted some edema in his right ankle since a prolonged trip. They just came back from [place] few days ago and they drove for several days staying at hotels. He had some neck tightness and discomfort and some low back pain that he associates with it. He had elevated hemoglobin A1c and got his weight down to 150 pounds about a year or so ago and it improved. He has put the 10 pounds back on. He has not had any recent shortness of breath. He is physically very active according to his , "more than he should be." PHYSICAL EXAM: He is well nourished and well hydrated with perhaps slight central obesity. Temperature 99.2, blood pressure is most recently 135/75, heart rate in the 70s and seems regular. Respiratory rate 12, oxygen saturation is 96% on room air. Heart is in a regular rhythm and I do not hear any murmurs. Lungs are clear bilaterally. Carotid pulses are symmetrical and there are no cervical bruits. Left elbow is deformed and has limited ability to supinate. There is no edema in the legs currently. There is no calf pain. Neurological Exam: Pupils react equally from about 3.5 to 2.5 mm symmetrically. Eye movements and visual caldwell are normal. Funduscopic exam reveals little bit of arterial tortuosity, but is unremarkable. Facial musculature is symmetric. Facial sensation to temperature, pin, and light touch are all symmetric. Palate and tongue appear normal, tongue protrudes in the midline and palate rises symmetrically. There is no dysarthria. He is little hard of hearing. Neck strength is normal. Motor exam is normal in the upper and lower extremities proximally and distally with the exception of difficulty testing about the left hip because of pain. Also, he has atrophy and fasciculations in the left first dorsal interosseous. He has mild first dorsal interosseous weakness bilaterally, but otherwise pretty good strength in the upper and lower extremities. Phgyhi-ev-htam maneuver is normal on the right. Lshrfe-la-sjnd maneuver is limited because of difficulty with mobility about the arm. There is no tremor. Heel-to- fry maneuver is normal bilaterally. Gait and station are normal. Romberg sign is absent. Sensory exam is notable for hyperesthesia to pin in the left ulnar distribution. There is a little of hyperesthesia on the dorsum of the left forearm as well. Other than that, sensation to light touch, vibration, and proprioception are normal in all 4 limbs. Reflexes are intact and symmetric other than absent left triceps reflex. Plantar responses are flexor bilaterally. He is alert and oriented with intact recent and remote memory. He has good attention and concentration and adequate fund of knowledge. Language is fluent. DIAGNOSTIC STUDIES/LAB DATA: Includes an MRI of the brain done yesterday interpreted as showing a small area of restricted diffusion in the right postcentral gyrus consistent with acute to subacute infarction. I reviewed the images and I agree. There is also a very small amount of nonspecific white matter changes probably indicative of small vessel disease. There are no hemorrhages. CT of the brain was unremarkable, CT angiogram of the brain is likewise unremarkable. There is some calcification in the aortic bifurcations, but no stenosis. Transthoracic echocardiogram interpreted as unremarkable. Bubble study was negative. Other laboratory data notable for normal chemistry profile, glucose yesterday was 186 and hemoglobin A1c this morning is 6.2%. Lipid profile notable for cholesterol 121 this morning, LDL 48. Clopidogrel 75 mg was added to his medical regimen last evening. 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 He does not appear to have a cardioembolic source and he does not have a patent foramen ovale since in spite of his travel it seems unlikely that he has a paradoxical embolus. I agree with adding Plavix to aspirin. I recommend continuing it for 30 days and then switching to Plavix monotherapy. His blood pressure is under good control as is his lipid profile. His blood sugar could probably be addressed perhaps with attempt at weight loss again. I am not sure he needs medical therapy for it, but it is a vascular risk factor which needs to be followed. I think he will have an outpatient noninvasive vascular study of the legs just to make sure he does not have evidence of phlebitis. If he does, then it might be worth doing a transesophageal echocardiogram to make sure we are not missing a patent foramen ovale. I have explained the results of the studies to Jose and his . I recommend that he see me in followup in 3 to 4 weeks and we will switch him to Plavix monotherapy if the rest of his evaluation and clinical course remain benign. I have discussed my impression with Dr. Vickers. [id number]/[facility] #: [id number] MTDJennifer
--- NOTE | 2018-02-08 12:29 | DS ---
CC: Dr. Almeida; Dr. Fernandes DISCHARGE SUMMARY: DATE OF ADMISSION: 02/06/18 DATE OF DISCHARGE: 02/07/18 HISTORY OF PRESENT ILLNESS/HOSPITAL COURSE: This 67-year-old man presented with sudden onset of left arm numbness. He has chronically some numbness from the elbow to the left fourth and fifth fingers related to multiple prior left elbow surgeries. This was a sudden onset of numbness from his shoulde r to encompassing his entire arm and all fingers of his hand. He was evaluated with a CT scan of the cervical spine, head CTA, transthoracic echocardiogram, and br ain MRI. The studies were essentially negative except for the MRI, which showed a subacute nonhemorr hagic infarction in the right postcentral gyrus. Echocardiogram had a negative bubble study, normal ejection fraction. The patient improved significantly overnight in the hospital, although he still has a little residual numbness. There were no new problems. Dr. Fernandes saw him in consultation. He was started on clop idogrel in the emergency room and he will be continued on this. Aspirin will be continued for a sharona h. He will follow up with Dr. Fernandes and Dr. Almeida. FINAL DIAGNOSES: 1. Cerebrovascular accident. 2. Coronary artery disease. 3. Hypertension. 4. Prediabetes with A1c of 6.2. DISCHARGE MEDICATIONS: 1. Clopidogrel 75 mg daily. 2. Multivitamin daily. 3. Tamsulosin 0.4 mg daily. 4. Simvastatin 20 mg daily. 5. Finasteride 5 mg daily. 6. Aspirin 81 mg daily. 7. Ramipril 5 mg daily. 8. Nabumetone 500 mg b.i.d. 9. Metoprolol tartrate 50 mg daily. [id number]/[facility] #: [id number]
== END 2018-02-07 16:55 | disposition home or self-care (01) ==
LOC: ED 18:09 → MEDTELE 21:25
PROVIDERS: ADMIT Internal Medicine; ATTEND Internal Medicine
DX: I63.9 Cerebral infarction, unspecified (principal); I25.10 Atherosclerotic heart disease of native coronary artery without angina pectoris; I10 Essential (primary) hypertension; R73.03 Prediabetes; K21.9 Gastro-esophageal reflux disease without esophagitis; K44.9 Diaphragmatic hernia without obstruction or gangrene; E78.5 Hyperlipidemia, unspecified; M54.2 Cervicalgia; R20.0 Anesthesia of skin
CPT/HCPCS: 36415; 70450; 70496; 70498; 70551; 72125; 80053; 80061; 81003; 83036; 83605; 84484; 85025; 85610; 93005; 93306; 99284; A9270-GY; G0378; J1644; Q9967

== ENCOUNTER 2018-06-25 07:30 | Inpatient (IN) | payer OTHER ==
--- NOTE | 2018-06-19 18:00 | HP ---
AMENDED REPORT NOW INCLUDES COSIGNER DESIGNATION HISTORY AND PHYSICAL: DATE OF ADMISSION/SURGERY: 06/25/18 DATE OF OFFICE VISIT: 06/19/18 SURGEON: Shani Bernal MD * (DICTATED BY RASHAD MANTILLA) PROCEDURE: Left total hip arthroplasty. CHIEF COMPLAINT: Left hip pain. HISTORY OF PRESENT ILLNESS: Mr. Mast is a 67-year-old gentleman with complaints of left hip pain. He has failed conservative treatment and elected to proceed with a left total hip arthroplasty, which is scheduled for 06/25/18. PAST MEDICAL HISTORY: Stroke in February of 2018, hypertension, GERD, and heart stents. PAST SURGICAL HISTORY: Six left elbow surgeries, heart stent placement, tonsillectomy, and a lymph node biopsy. CURRENT MEDICATIONS: 1. Plavix 75 mg daily. 2. Ramipril 5 mg daily. 3. Metoprolol 50 mg daily. 4. Multivitamin. 5. Simvastatin. 6. Tamsulosin 0.4 mg daily. 7. Finasteride 5 mg daily. 8. Ranitidine. ALLERGIES: None. FAMILY HISTORY: Stroke, coronary artery disease and diabetes. SOCIAL HISTORY: He is a 67-year-old gentleman, lives with his . He does not smoke or use drugs. He uses occasional alcohol. REVIEW OF SYSTEMS: A complete 14-point review of systems was reviewed with the patient. It was positive for history of stroke back in February of 2018 and GERD. He denies history of DVT, PE, hepatitis, HIV or anesthesia problems. PHYSICAL EXAMINATION GENERAL: He is well developed, well nourished, in no acute distress. VITAL SIGNS: He stands 5 feet 9 inches tall, weighs 169 pounds. His blood pressure is 136/72 and his heart rate is 60. HEENT: Normocephalic, atraumatic. NECK: Supple. No palpable lymph nodes. PULMONARY: The lungs are clear to auscultation bilaterally. CARDIO: Regular rate and rhythm. Strong S1, S2. ABDOMEN: Soft, nontender, and nondistended. NEUROLOGICAL: He is alert and oriented x3. MUSCULOSKELETAL: Left lower extremity: The skin is intact. There are no open wounds or abrasions. He walks with an antalgic-type gait favoring his left hip. He has decreased internal and external rotation of the left hip. He has a 2+ dorsalis pedis pulse, intact sensation in his lower extremity. Muscle group strengths are intact at 5/5. ASSESSMENT AND PLAN: Mr. Mast is a 67-year-old gentleman with end-stage osteoarthritis of the left hip. He has failed conservative treatment and elected to proceed with a left total hip arthroplasty, which is scheduled for with Dr. Bernal. Dr. Bernal discussed the risks and benefits of the surgery at today's visit and all of his questions were answered. He will follow up with Dr. Bernal 2 weeks after the surgery. He stopped his Plavix on . RASHAD MANTILLA [id number]/[facility] #: [id number] MTDJennifer
[~2018-06-25 07:30] MED LIST: Buffered Lidocaine 0.9% SYRIN* 5 ML/SYR SYRINGE INTRADERM ONE; Dexamethasone TAB* 4 MG PO ONE; DiMENhydriNATE IV* 50 MG/ML VIAL IV PUSH PRN; Famotidine IV* 10 MG/ML 2 ML (20 mg) IV ONE; Gabapentin CAP(*) 300 MG PO ONE; Morphine VIAL* 4 MG/ML VIAL (1 ml vial) IV PRN; Naloxone* 0.4 MG/ML 1 ML VIAL IV PRN; Ondansetron TAB* 4 MG PO ONE; PROCHLORPERAZINE INJ 5 MG/ML 2 ML VIAL IV PRN; fentaNYL* 50 MCG/ML 2 ML VIAL (100 MCG VIAL) IV PRN; oxyCODONE/Acetamin 5/325 MG* TAB PO PRN
--- OUTSIDE RECORDS SUMMARY | 2018-06-25 13:33 | XMS REPORT ---
:1950 External Reference #:[id number] Author Organization [facility] Address [address] [place] [address] [place] [address] Phone [phone] Care Team Providers Name Role Phone Julio Almeida MD Primary Care Physician Unavailable Payers Type Date Identification Numbers Payment Provider Subscriber Commercial Policy Number: [id number] [employer] Heather Hernandez Kezia PayID: [id number] [address] [place] [address] Medigap Part B Expires: Policy Number: [employer] Heather Kezia 2014 [id number] Group Number: [id number] [address] PayID: [id number] [place] [address] Problems Date Description Provider Status Onset: 06/16/2011 Coronary arteriosclerosis Chris Aranda M.D. Onset: 06/16/2011 Benign essential hypertension Chris Aranda M.D. Onset: 06/16/2011 Electrocardiogram abnormal Chris Aranda M.D. Onset: 06/16/2011 Patient post percutaneous Chris Aranda transluminal coronary angioplasty Jarrett.Shira Onset: 06/16/2011 Preoperative cardiovascular Chris Aranda examination Pablo Onset: 10/10/2011 Hyperlipidemia Chris Aranda M.D. Onset: 09/25/2013 Chest pain Chris Aranda M.D. Onset: 09/25/2013 Palpitations Chris Aranda M.D. Onset: 09/25/2013 Dyspnea Chris Aranda M.D. Onset: 05/17/2015 Degenerative joint disease Craig Suarez M.D. Active involving multiple joints Onset: 05/17/2015 Disorder of lumbar disc Craig Suarez M.D. Active Onset: 05/17/2015 Cervical disc disorder Craig Suarez M.D. Active Onset: 05/17/2015 Localized, secondary osteoarthritis Craig Suarez M.D. Active Onset: 05/17/2015 Difficulty breathing Craig Suarez M.D. Active Onset: 05/17/2015 Multiple joint pain Craig Suarez M.D. Active Onset: 04/27/2016 Thoracic and lumbosacral neuritis Aaron Izquierdo M.D. Active Onset: 02/06/2018 Benign prostatic hypertrophy Page Pablo M.D. Active without outflow obstruction Onset: 02/06/2018 Arteriosclerosis of coronary artery Page Pablo M.D. Active bypass graft Onset: 02/06/2018 Skin sensation disturbance Page Pablo M.D. Active Onset: 02/07/2018 Brachial neuritis Guero Vickers M.D. Active Onset: 03/15/2018 Localized, primary osteoarthritis Shani Bernal M.D. Active Onset: 03/15/2018 Localized, primary osteoarthritis Shani Bernal M.D. Active of the pelvic region and thigh Family History Date Family Member(s) Problem(s) Comments General Diabetes General Stroke Social History Type Date Description Comments Marital Status Marital Status lives with spouse. 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 day Ramipril / Active Capsules 5mg 90caps 1 by Cata 0000 mouth S. every Maghaydah, day M.D. Metoprolol / Active Tablets 50mg 90tabs 1 by Qutaybeh Tartrate 0000 mouth S. every Maghaydah, day M.D. Multivitamins / Active Tablets 30tabs 1 po qd Unknown 0000 Simvastatin / Active Tablets 40mg 45tabs 1/2 po Qutaybeh 0000 every S. other Maghaydah, day M.D. Tamsulosin HCL / Active Capsules 0.4mg 90caps 1 po qd Unknown 0000 Finasteride / Active Tablets 5mg 90tabs 1 po qd Unknown 0000 Acetaminophen / Active Tablets 500mg 2 tabs Unknown Extra Strength 0000 by mouth every 8 hours as needed for pain or fever Ranitidine Acid / Active Unknown Rn Urgent Care 0000 Nabumetone 04/27/ Hx Tablets 500mg 180tab take one M06.4 Aaron 2015 - s capsule/ Timbo, 04/22/ tablet M.D. 2018 by mouth twice daily as needed for pain, please stop other nsaids Pantoprazole 10/06/ Hx Tablets DR 20mg 90tabs 1 by Aaron Sodium 2014 - mouth Timbo, 03/19/ every M.D. 2018 other day Nitroglycerin 09/25/ Hx Tablets 0.4mg 50tabs 1 sl Qutaybeh 2014 - Sub q5mins S. 03/18/ x3 prn Bay, 2018 for M.D. chest pain Percocet 02/12/ Hx Tablets 5-325mg 60tabs 1-2 po Vianey 2013 - q4-6h Pugh-You 09/25/ prn pain Pablo mar 2014 Plavix 01/09/ Hx Tablets 75mg 90tabs 1 po qd Qutaybeh 2010 - S. 07/31/ Bay, 2011 M.D. Simvastatin / Hx Tablets 40mg 45tabs 1 po qhs Qutaybeh - S. 12/04/ Bay, 2011 M.D. Aspir-81 / Hx Tablets DR 81mg 1 po qd Unknown 0000 - 2017 Calcium // Hx Tablets 600-125mg 1 po qd Unknown Carbonate 0000 - 2010 Omeprazole / Hx Capsules 30caps 1 po qd Unknown 0000 - DR 2010 Protonix 00/ Hx Tablets DR 40mg 90tabs 1 po qd Qutaybeh 0000 - S. 02/12/ Kirstie Hermosillo M.D. Hydrocodone/Acet / Hx Tablets 5-500mg 30tabs one or Unknown aminophen 0000 - two po 10/10/ every 4 2012 - 6 hours prn pain Flomax / Hx Capsules 0.4mg 1 daily Unknown 0000 - prn 2011 Avodart / Hx Capsules 0.5mg 90caps 1 po qd Unknown 0000 - 2012 Aleve / Hx Tablets 220mg as Unknown 0000 - needed 2015 Pepcid / Hx Tablets take 1 Unknown 0000 - tablet 05/28/ by mouth 2017 two times daily Maalox Advanced / Hx Chewtabs 1000-60mg 1 tab Unknown Maximum Strength 0000 - three 05/28/ times a 2017 day as needed Medications Administered in Office Medication Date Status Form Strength Qnty SIG Indications Ordering Provider Technetium TC Administered Injection Ju 99M Rosanna Velazquez M.D. Per Unit Dose Up To 40 Millicuries Technetium TC Administered Injection Ju 99M 018 Rosanna Pacheco M.D. Per Unit Dose Up To 40 Millicuries Vital Signs Date Vital Result Comment 06/19/2018 Height 69 inches 5'9" Weight 169.00 lb Heart Rate 60 /min BP Systolic 136 mmHg BP Diastolic 72 mmHg BMI (Body Mass Index) 25.0 kg/m2 05/29/2018 Height 69 inches 5'9" Weight 168.00 lb Heart Rate 73 /min BP Systolic 138 mmHg BP Diastolic 72 mmHg BMI (Body Mass Index) 24.8 kg/m2 04/22/2018 Height 69 inches 5'9" Weight 166.00 lb Heart Rate 58 /min BP Systolic Sitting 118 mmHg BP Diastolic Sitting 63 mmHg Respiratory Rate 14 /min Pain Level 1 BMI (Body Mass Index) 24.5 kg/m2 03/19/2018 Height 69 inches 5'9" Weight 166.25 lb Heart Rate 74 /min BP Systolic 142 mmHg BP Diastolic 82 mmHg BMI (Body Mass Index) 24.5 kg/m2 03/15/2018 Height 69 inches 5'9" Weight 170.00 lb Heart Rate 76 /min BP Systolic 120 mmHg BP Diastolic 64 mmHg BMI (Body Mass Index) 25.1 kg/m2 05/25/2016 Height 68.5 inches 5'8.50" Weight 165.38 lb Heart Rate 60 /min BP Systolic Sitting 118 mmHg BP Diastolic Sitting 76 mmHg Respiratory Rate 14 /min Body Temperature 96.6 F Pain Level 2 BMI (Body Mass Index) 24.8 kg/m2 04/27/2016 Height 68.5 inches 5'8.50" Weight 168.50 lb Heart Rate 72 /min BP Systolic Sitting 120 mmHg BP Diastolic Sitting 60 mmHg Respiratory Rate 14 /min Body Temperature 96.6 F Pain Level 2 BMI (Body Mass Index) 25.2 kg/m2 05/17/2015 Height 68.5 inches 5'8.50" Weight 171.38 lb Heart Rate 60 /min BP Systolic Sitting 144 mmHg BP Diastolic Sitting 70 mmHg Respiratory Rate 14 /min Pain Level 4 BMI (Body Mass Index) 25.7 kg/m2 03/16/2014 Height 68.5 inches 5'8.50" Weight 173.00 lb Heart Rate 72 /min BP Systolic Sitting 120 mmHg BP Diastolic Sitting 58 mmHg BMI (Body Mass Index) 25.9 kg/m2 02/27/2014 Height 70 inches 5'10" Weight 170.00 lb Heart Rate 66 /min BP Systolic 137 mmHg BP Diastolic 80 mmHg BMI (Body Mass Index) 24.4 kg/m2 10/09/2013 Height 69 inches 5'9" Heart Rate 68 /min BP Systolic Sitting 148 mmHg BP Diastolic Sitting 76 mmHg 09/25/2013 Height 69 inches 5'9" Weight 170.00 lb Heart Rate 74 /min BP Systolic Sitting 154 mmHg BP Diastolic Sitting 86 mmHg Respiratory Rate 16 /min BMI (Body Mass Index) 25.1 kg/m2 02/12/2013 Height 69 inches 5'9" Weight 166.00 lb Heart Rate 72 /min BP Systolic Sitting 162 mmHg BP Diastolic Sitting 80 mmHg Respiratory Rate 16 /min BMI (Body Mass Index) 24.5 kg/m2 07/31/2012 Height 69 inches 5'9" Weight 172.00 lb Heart Rate 66 /min BP Systolic 134 mmHg BP Diastolic 80 mmHg BMI (Body Mass Index) 25.4 kg/m2 12/05/2011 Height 69 inches 5'9" Weight 183.00 lb Heart Rate 58 /min BP Systolic Sitting 152 mmHg BP Diastolic Sitting 72 mmHg BMI (Body Mass Index) 27.0 kg/m2 10/10/2011 Height 69 inches 5'9" Weight 177.00 lb Heart Rate 62 /min BP Systolic Sitting 142 mmHg BP Diastolic Sitting 82 mmHg BMI (Body Mass Index) 26.1 kg/m2 06/16/2011 Height 69 inches 5'9" Weight 179.00 lb Heart Rate 78 /min BP Systolic 140 mmHg BP Diastolic 68 mmHg BMI (Body Mass Index) 26.4 kg/m2 01/09/2011 Height 69 inches 5'9" Weight 180.00 lb Heart Rate 71 /min BP Systolic Sitting 154 mmHg BP Diastolic Sitting 88 mmHg BMI (Body Mass Index) 26.6 kg/m2 12/27/2010 Height 69 inches 5'9" Weight 182.00 lb Heart Rate 99 /min BP Systolic Sitting 132 mmHg r BP Diastolic Sitting 80 mmHg r O2 % BldC Oximetry 97 % BMI (Body Mass Index) 26.9 kg/m2 Results Test Date Test Result H/L Range Note Laboratory test finding 04/24/2018 Hemoglobin A1c (Fma) 6.2 % High 4.1- 5.7 Microalb, Random (Fma/CMC/CTX) 9.7 mg/L 0.5-37 Sedimentation Rate 14mm Laboratory test finding 04/24/2018 Antinuclear Antibodies, Ifa Negative 1, 2 C-Reactive Protein, Quant 6.3 mg/L High 0.0-4.9 1 Folate (Folic Acid), Serum >20.0 ng/mL >3.0 1, 3 Hla B 27 Disease Association Negative 1, 4 Rheumatoid Arthritis Factor 04/24/2018 Ra Latex Turbid. <10.0 Iu/ml 0.0- 13.9 1 ([facility]) Laboratory test finding 04/24/2018 Baso # 0.03 10^3/uL 0.01-0.08 Baso% 0.5 % 0.1-1.2 Eos # 0.2 10^3/uL 0.0-0.5 Eos% 2.8 % 0.7-7.0 HCT 45 % 35-50 HGB 15.1 g/dL 12.0-17.0 Lymph % 17.8 % Low 20.0-52.0 5 Lymph# 1.07 10^3/uL Low 1.18-3.74 6 MCH 28.3 pg 25.6-32.2 MCHC 33.9 g/dL 32.2-36.0 MCV 83.3 fL 80.0-95.0 MPV 9.1 fL Low 9.4-12.[address] [place]# 0.44 10^3/uL 0.24-0.82 [place]% 7.6 % 5.0-12.0 Edwin# 4.15 10^3/uL 1.56-6.13 Edwin% 70.7 % High 34.0-70.0 8 PLT 205 10^3/uL 163-400 RBC 5.34 10^6/uL 3.93-6.00 RDW-CV 14.0 % 11.6-14.4 TSH 1.31 mIU/L 0.50-6.00 Vitamin B-12 646 pg/mL 230-1050 WBC 5.8 10^3/uL 4.0-10.0 Comprehensive Metabolic Prof 04/24/2018 A/G Ratio 1.8 CALC 0.6-2.3 Albumin 4.6 g/dL 3.8-5.5 Alk. Phosphatase 66 U/L 22-95 Alt (SGPT) 16 U/L 7-35 Ast (Sgot) 14 U/L 5-34 BUN 15 mg/dL 6-26 BUN/Creat Ratio 18.8 CALC 8.0-36.0 Calcium 9.3 mg/dL 8.6-10.2 Carbon Dioxide 25 mEq/L 21-32 Chloride 101 mEq/L 94-112 Creatinine 0.8 mg/dL 0.6-1.4 GFR >60 ml/min/1.73m^ >=60 GFR Non- >60 ml/min/1.73m^ >=60 Globulin 2.5 g/dL 2.0-4.8 Glucose 94 mg/dL 70-105 Potassium 4.0 mEq/L 3.6-5.5 Sodium 137 mEq/L 134-149 Total Bilirubin 0.4 mg/dL 0.2-1.3 Total Protein 7.1 g/dL 6.4-8.3 Lipid Profile 04/24/2018 Cholesterol 142 mg/dL 120-200 HDL Cholesterol 46 mg/dL 30-70 HDL Risk Factor 3.1 CALC 0.0-4.4 LDL (Calculated) 61 CALC 0-129 Triglycerides 175 mg/dL 30-200 VLDL Cholesterol 35 mg/dL 0-50 Laboratory test finding 05/11/2016 Lyme Disease Serology Negative Negative 9 Creatine Kinase(CK) 76 U/L 10-223 10 TSH (Thyroid Stim Horm) 1.76 mcIU/mL 0.34-5.60 11 Vitamin D 1,25 And Vitamin 05/11/2016 Vitamin D Total 25(Oh) 38.6 ng/mL 30-50 12 D,2 Vitamin D, 1,25 Dihydroxy 139 pg/mL 18-64 13 Vitamin B12 And Folate Serum 05/11/2016 Vitamin B12 410 pg/mL 180-914 14 Folic Acid (Folate) > 20.00 ng/mL >3.99 15 Laboratory test finding 05/11/2016 C Reactive Protein 1.70 mg/L < 5.00 16 Comp Metabolic Panel 05/11/2016 Sodium 136 mmol/L 133-145 Potassium 3.9 mmol/L 3.5-5.0 Chloride 103 mmol/L 101-111 Co2 Carbon Dioxide 27 mmol/L 22-32 Anion Gap 6 mmol/L 2-11 Glucose 175 mg/dL High 70-100 Blood Urea Nitrogen 17 mg/dL 6-24 Creatinine 0.75 mg/dL 0.67-1.17 BUN/Creatinine Ratio 22.7 High 8-20 Calcium 9.0 mg/dL 8.6-10.3 Total Protein 6.4 g/dL 6.4-8.9 Albumin 3.9 g/dL 3.2-5.2 Globulin 2.5 g/dL 2-4 Albumin/Globulin Ratio 1.6 1-3 Total Bilirubin 0.50 mg/dL 0.2-1.0 Alkaline Phosphatase 60 U/L 34-104 Alt 14 U/L 7-52 Ast 16 U/L 13-39 Egfr Non- 103.9 >60 Egfr 133.6 >60 17 CBC Auto Diff 05/11/2016 White Blood Count 7.0 10^3/uL 3.5-10.8 Red Blood Count 5.00 10^6/uL 4.0-5.4 Hemoglobin 14.2 g/dL 14.0-18.0 Hematocrit 42 % 42-52 Mean Corpuscular Volume 84 fL 80-94 Mean Corpuscular Hemoglobin 28 pg 27-31 Mean Corpuscular HGB Conc 34 g/dL 31-36 Red Cell Distribution Width 14 % 10.5-15 Platelet Count 169 10^3/uL 150-450 Mean Platelet Volume 8 um3 7.4-10.4 Abs Neutrophils 5.4 10^3/uL 1.5-7.7 Abs Lymphocytes 1.0 10^3/uL 1.0-4.8 Abs Monocytes 0.3 10^3/uL 0-0.8 Abs Eosinophils 0.1 10^3/uL 0-0.6 Abs Basophils 0.1 10^3/uL 0-0.2 Abs Nucleated RBC 0.06 10^3/uL Granulocyte % 77.1 % 38-83 Lymphocyte % 14.7 % Low 25-47 Monocyte % 5.0 % 1-9 Eosinophil % 2.0 % 0-6 Basophil % 1.2 % 0-2 Nucleated Red Blood Cells % 0.9 Laboratory test finding 05/11/2016 Angiotensin Converting Enzyme 9 U/L 8 - 53 18 Anti Nuclear Antibody 0.6 U 19 Rheumatoid Factor <15 IU/mL <15 20 Uric Acid 5.6 mg/dL 4.4-7.6 21 Cyclic Citrullinated Pep Igg <15.6 U 22 Anca AB Ser If 05/11/2016 C-Anca Negative Negative P-Anca Negative Negative 23 CBC Auto Diff 05/18/2015 White Blood Count 4.7 10^3/uL Low 4.8-10.8 Red Blood Count 5.21 10^6/uL 4.0-5.4 Hemoglobin 14.9 g/dL 14.0-18.0 Hematocrit 45 % 42-52 Mean Corpuscular Volume 87 fL 80-94 Mean Corpuscular Hemoglobin 29 pg 27-31 Mean Corpuscular HGB Conc 33 g/dL 31-36 Red Cell Distribution Width 14 % 10.5-15 Platelet Count 197 10^3/uL 150-450 Mean Platelet Volume 8 um3 7.4-10.4 Abs Neutrophils 3.2 10^3/uL 1.5-7.7 Abs Lymphocytes 1.1 10^3/uL 1.0-4.8 Abs Monocytes 0.3 10^3/uL 0-0.8 Abs Eosinophils 0.1 10^3/uL 0-0.6 Abs Basophils 0.1 10^3/uL 0-0.2 Abs Nucleated RBC 0 10^3/uL Granulocyte % 67.4 % 38-83 Lymphocyte % 22.8 % Low 25-47 Monocyte % 6.9 % 1-9 Eosinophil % 1.8 % 0-6 Basophil % 1.1 % 0-2 Nucleated Red Blood Cells % 0 Comp Metabolic Panel 05/18/2015 Sodium 135 mmol/L 133-145 Potassium 4.2 mmol/L 3.5-5.0 Chloride 103 mmol/L 101-111 Co2 Carbon Dioxide 26 mmol/L 22-32 Anion Gap 6 mmol/L 2-11 Glucose 95 mg/dL 70-100 Blood Urea Nitrogen 18 mg/dL 6-24 Creatinine 0.77 mg/dL 0.67-1.17 BUN/Creatinine Ratio 23.4 High 8-20 Calcium 9.2 mg/dL 8.6-10.3 Total Protein 6.6 g/dL 6.4-8.9 Albumin 4.1 g/dL 3.2-5.2 Globulin 2.5 g/dL 2-4 Albumin/Globulin Ratio 1.6 1-3 Total Bilirubin 0.30 mg/dL 0.2-1.0 Alkaline Phosphatase 70 U/L 34-104 Alt 21 U/L 7-52 Ast 17 U/L 13-39 Egfr Non- 101.1 >60 Egfr 130.0 >60 24 Laboratory test finding 05/18/2015 Erythrocyte Sed Rate 10 mm/Hr 0-40 C Reactive Protein < 1.00 mg/L < 5.00 25 Rheumatoid Factor <15 IU/mL <15 26 Cyclic Citrullinated Pep Igg <15.6 U 27 Hla B27 05/18/2015 Hla B27 Negative 28 Hla B27 Interp See Comment 29 Inr/Protime 09/26/2013 Inr 0.89 0.85-1.06 Basic Metabolic Panel 09/26/2013 Sodium 134 mmol/L 133-145 Potassium 4.1 mmol/L 3.5-5.0 Chloride 99 mmol/L Low 101-111 Co2 Carbon Dioxide 29.0 mmol/L 22-32 Anion Gap 6.0 mmol/L 2-11 Glucose 111 mg/dL High 70-100 Blood Urea Nitrogen 23 mg/dL 6-24 Creatinine 0.80 mg/dL 0.50-1.40 BUN/Creatinine Ratio 28.8 High 8-20 Calcium 9.8 mg/dL 8.1-9.9 Egfr Non- 97.0 >60 Egfr 124.8 >60 30 CBC Auto Diff 09/26/2013 White Blood Count 5.6 10^3/uL 4.8-10.8 Red Blood Count 5.69 10^6/uL High 4.0-5.4 Hemoglobin 14.8 g/dL 14.0-18.0 Hematocrit 45 % 42-52 Mean Corpuscular Volume 78 fL Low 80-94 Mean Corpuscular Hemoglobin 26 pg Low 27-31 Mean Corpuscular HGB Conc 33 g/dL 31-36 Red Cell Distribution Width 17 % High 10.5-15 Platelet Count 210 10^3/uL 150-450 Mean Platelet Volume 8 um3 7.4-10.4 Abs Neutrophils 3.8 10^3/uL 1.5-7.7 Abs Lymphocytes 1.1 10^3/uL 1.0-4.8 Abs Monocytes 0.4 10^3/uL 0-0.8 Abs Eosinophils 0.2 10^3/uL 0-0.6 Abs Basophils 0 10^3/uL 0-0.2 Abs Nucleated RBC 0 10^3/uL Granulocyte % 67.7 % 38-83 Lymphocyte % 20.6 % Low 25-47 Monocyte % 7.8 % 1-9 Eosinophil % 3.1 % 0-6 Basophil % 0.8 % 0-2 Nucleated Red Blood Cells % 0 Cath Panel 09/26/2013 Activated Partial 29.1 seconds 24.0-36.1 Thrombo Time Surgical Pathology 02/27/2013 S RUN DATE: <SEE NOTE> 1 2 sst 2 Negative <1:80 Borderline 1:80 Positive >1:80 3 A serum folate concentration of less than 3.1 ng/mL is considered to represent clinical deficiency. 4 HLA-B*27 Negative B27 allele interpretation for all loci based on IMGT/HLA database version 3.27 This test was developed and its performance characteristics determined by [facility]. It has not been cleared or approved by the Food and Drug Administration. [facility] CLIA ID Number [id number] This test was performed using PCR (Polymerase Chain Reaction)/SSOP (Sequence Specific Oligonucleotide Probes) technique. SBT (Sequence Based Typing) and/or SSP (Sequence Specific Primers) may be used as supplemental methods when necessary. Please contact [facility] Customer Service at if you have any questions. Director of [facility] Dr Kp Martinez, PhD 5 RESULTS VERIFIED BY REPEAT ANALYSIS 6 RESULTS VERIFIED BY REPEAT ANALYSIS 7 RESULTS VERIFIED BY REPEAT ANALYSIS 8 RESULTS VERIFIED BY REPEAT ANALYSIS 9 Serologic response to B. burgdorferi infection is not detected, but cannot rule out early infection during which low or undetectable antibody levels to B. burgdorferi may be present. If clinically indicated, a new serum specimen should be submitted in 7-14 days. Test Performed by: [facility] [place] [address] [employer] Rep[employer]: Fransico Purcell II, M.D., Ph.D. 10 Please check labs this week 11 Please check labs this week 12 Please check labs this week 13 ADDITIONAL INFORMATION This test was developed and its performance characteristics determined by [facility] in a manner consistent with CLIA requirements. This test has not been cleared or approved by the U.S. Food and Drug Administration. Test Performed by: [facility] [place] [address] Instrument Rep[employer]: Fransico Purcell II, M.D., Ph.D. 14 Normal Range 180 to 914 Indeterminate Range 145 to 180 Deficient Range <145 15 Please check labs this week 16 Acute inflammation: >10.00 17 Because ethnic data is not always readily available, this report includes an eGFR for both -Americans and non- Americans. The National Kidney Disease Education Program (NKDEP) does not endorse the use of the MDRD equation for patients that are not between the ages of 18 and 70, are , have extremes of body size, muscle mass, or nutritional status, or are non- or non-. According to the National Kidney Foundation, irrespective of diagnosis, the stage of the disease is based on the level of kidney function: Stage Description GFR(mL/min/1.73 m(2)) 1 Kidney damage with normal or decreased GFR 90 2 Kidney damage with mild decrease in GFR 60-89 3 Moderate decrease in GFR 30-59 4 Severe decrease in GFR 15-29 5 Kidney failure <15 (or dialysis) 18 Test Performed by: [place] [address] Instrument [employer]: Fransico Purcell II, M.D., Ph.D. 19 REFERENCE VALUE <=1.0 (Negative) Test Performed by: [place] [address] Instrument [employer]: Fransico Purcell II, M.D., Ph.D. 20 Test Performed by: [place] [address] Instrument Rep[employer]: Fransico Purcell II, M.D., Ph.D. 21 Please check labs this week 22 REFERENCE VALUE <20.0 (Negative) Test Performed by: [place] [address] Instrument [employer]: Fransico Purcell II, M.D., Ph.D. 23 Negative for cANCA and pANCA patterns by immunofluorescence. ADDITIONAL INFORMATION This test was developed and its performance characteristics determined by [facility] in a manner consistent with CLIA requirements. This test has not been cleared or approved by the U.S. Food and Drug Administration. Test Performed by: [place] [address] Instrument [employer]: Fransico Purcell II, M.D., Ph.D. 24 Because ethnic data is not always readily available, this report includes an eGFR for both -Americans and non- Americans. The National Kidney Disease Education Program (NKDEP) does not endorse the use of the MDRD equation for patients that are not between the ages of 18 and 70, are , have extremes of body size, muscle mass, or nutritional status, or are non- or non-. According to the National Kidney Foundation, irrespective of diagnosis, the stage of the disease is based on the level of kidney function: Stage Description GFR(mL/min/1.73 m(2)) 1 Kidney damage with normal or decreased GFR 90 2 Kidney damage with mild decrease in GFR 60-89 3 Moderate decrease in GFR 30-59 4 Severe decrease in GFR 15-29 5 Kidney failure <15 (or dialysis) 25 Acute inflammation: >10.00 26 Test Performed by: [place] [address] Instrument [employer]: Fransico Purcell II, M.D., Ph.D. 27 REFERENCE VALUE <20.0 (Negative) Test Performed by: [place] [address] Instrument Rep[employer]: Fransico Purcell II, M.D., Ph.D. 28 REFERENCE VALUE Not Applicable 29 RESULT: HLA-B27 antigen was not detected. ADDITIONAL INFORMATION Method: Flow Cytometry Performing Laboratory CLIA# [id number] Test Performed by: [place] [address] Instrument Rep[employer]: Fransico Purcell II, M.D., Ph.D. 30 Because ethnic data is not always readily available, this report includes an eGFR for both -Americans and non- Americans. The National Kidney Disease Education Program (NKDEP) does not endorse the use of the MDRD equation for patients that are not between the ages of 18 and 70, are , have extremes of body size, muscle mass, or nutritional status, or are non- or non-. According to the National Kidney Foundation, irrespective of diagnosis, the stage of the disease is based on the level of kidney function: Stage Description GFR(mL/min/1.73 m(2)) 1 Kidney damage with normal or decreased GFR 90 2 Kidney damage with mild decrease in GFR 60-89 3 Moderate decrease in GFR 30-59 4 Severe decrease in GFR 15-29 5 Kidney failure <15 (or dialysis) 31 RUN DATE: 03/21/13 [facility] LAB LIVE PAGE 1 RUN TIME: [address] [place] [id number] Specimen Inquiry Name: JOSE CAT : [address]: Vianey Ca Acct: [id number] Unit: [id number] AGE: 62 Location: OR Re02/27/13 SEX: M Status: [facility] SPEC: [id number] CHULA: 02/27/13- [facility] DR: Vianey Ca MD REQ: [id number] RECD: 02/27/1342 STATUS: SOUT _ ORDERED: LEVEL I, LEVEL IV FINAL DIAGNOSIS 1. Left elbow: Foreign body (orthopedic hardware) (Gross diagnosis). 2. Heterotopic tissue left elbow, resection: A. Bone and cartilage with degenerative osteoarthritic changes. B. Synovium with hemorrhage and fibrosis. PRE-OPERATIVE DIAGNOSIS Left elbow contracture and cubital tunnel. GROSS DESCRIPTION 1) The specimen is received in formalin labeled Jose Cat, Hardware Left Elbow and consists of a metallic, articular component measuring 2.4 x 1.4 cm. with a smooth convex articular surface. Also submitted is a silver metallic screw measuring 1.2 by up to 0.2 cm. thread thickness. Per established hospital medical staff protocol no tissue is submitted. Gross only. 2) The specimen is received in formalin labeled Jose JenniferLibra Kezia, Heterotopic Tissue Left Elbow and consists of multiple bone, cartilage, and soft tissue fragments measuring 5.6 x 3.0 by up to 1.0 cm. in aggregate. Millwork Estimator sections submitted in A and B after decal times one. MICROSCOPIC DESCRIPTION Signed (signature on file) Izaiah Pradhan MD 1507 END OF REPORT * ML=Testing performed at Main Lab DEPARTMENT OF PATHOLOGY, [address] [place] [address] Izaiah Pradhan M.D. Director [facility] Permit #[id number] Procedures Date CPT Code Description Status 02/27/2014 50026 Rad Exam; Foot Comp Completed 10/01/2013 09416 Left Heart Cath. Incl S/I Coronaries, Angio S/I V Gram Completed If Done 10/01/2013 19815 Cath PLMT&NJX L Ventriculog Img S&I Completed 10/01/2013 80096 Left Health Catheterization W/Inj For Left Completed Ventriculography,S&I 09/26/2013 76765 ECHO Transthorasic Realtime 2D W Doppler & Color Flow Completed Hosp 09/25/2013 92880 EKG Tracing & Interpretation Completed 02/27/2013 89082 Arthroplasty Radial Head W/Implant Completed 02/27/2013 40887 Arthroplasty Radial Head W/Implant Completed 02/27/2013 19087 Remove Implant Radial Head Completed 02/27/2013 60136 Radical Resection Capsule,Soft Tissue&Bone Elbow Completed W/Contr Release 02/27/2013 47717 Radical Resection Capsule,Soft Tissue&Bone Elbow Completed W/Contr Release 02/12/2013 32755 EKG Tracing & Interpretation Completed 08/19/2012 37447 Treadmill Interp/Report Only Completed 08/19/2012 15338 Stress Test Supervsn W/Out I/R Completed 08/19/2012 39740 EKG, Interpretation Only Completed 07/31/2012 97743 EKG Tracing & Interpretation Completed 07/08/2012 87959 Rad Exam; Elbow, Comp Completed 12/05/2011 63819 EKG Tracing & Interpretation Completed 10/10/2011 88106 EKG Tracing & Interpretation Completed 06/16/2011 46904 EKG Tracing & Interpretation Completed 01/09/2011 35838 EKG Tracing & Interpretation Completed 12/30/2010 89688 EKG, Interpretation Only Completed 12/29/2010 94028 Left Heart Cath. Incl S/I Coronaries, Angio S/I V Gram Completed If Done 12/29/2010 61605 Cath PLMT&NJX L Ventriculog Img S&I Completed 12/29/2010 48027 EKG, Interpretation Only Completed 12/29/2010 86351 Ptca W/Intracor Stent Completed 12/29/2010 62059 IV Rx Trancath Therapy(Nitro/Munira) Completed 12/28/2010 51025 ECHO Transthoracic, Real-Time 2D With Doppler And Color Completed Flow 12/27/2010 00151 ECHO Stress Test Incl Perf Contiuous ekg Monitoring Completed W/Phys Superv 12/27/2010 49905 EKG Tracing & Interpretation Completed Encounters Type Date Location Provider CPT E/M Dx Office Visit 05/29/2018 [facility] Faisal Fernandes, 06111 Z01.818 9:00a Pablo M16.12 Z79.02 Z86.73 Office Visit 04/22/2018 8:20a [facility] Of Aaron Izquierdo, 95579 M06.4 Naima Shah M16.12 M25.561 R73.09 R20.8 Office Visit 03/19/2018 4:00p [facility] Faisal Fernandes, 47943 E78.5 Services Of Naima Shah Z86.73 Z79.02 Office Visit 03/15/2018 8:00a [facility] Of Shani Bernal M.D. 08754 M25.561 C.M.ALibra M25.461 M17.11 M25.552 M16.12 Office Visit 02/07/2018 10:56a [facility] Guero Vickers, 99073 M54.12 Hospitalists M.DLibra R20.0 I10 Office Visit 02/07/2018 7:00a [facility] Faisal Fernandes, 15147 I63.9 M.DLibra I10 E78.5 R73.09 Office Visit 02/06/2018 10:55a [facility], Page Pablo, 24642 I63.9 Hospitalists MNatalie I25.10 I10 R20.0 Office Visit 05/25/2016 8:40a [facility] Aaron Izquierdo, 71533 M51.36 Of Naima Shah M70.62 Z79.899 M79.1 Office Visit 04/27/2016 8:00a [facility] Of Aaron Izquierdo, 22582 M06.4 Naima Shah Z79.899 M51.16 R20.8 M79.1 Office Visit 05/17/2015 2:40p [facility] Craig Suarez, 26482 715.09 Of Naima Shah 715.05 722.93 722.91 715.22 786.09 719.49 Office Visit 03/16/2014 8:00a [facility] Services Tanner Ly M.D. 54077 719.90 Of [facility] 715.09 Office Visit 02/27/2014 11:00a [facility] [place], 64378 825.25 C.M.ALibra Shah 825.25 Office Visit 10/09/2013 11:20a [facility] [place], 36514 786.50 MNatalie 414.01 401.1 272.2 Office Visit 10/01/2013 11:30a [facility] [place], 35335 414.01 M.DLibra 786.50 786.05 414.9 Office Visit 09/25/2013 9:00a [facility] [place] Maghaydah, 54654 401.1 M.D. 272.2 414.01 786.50 785.1 786.05 Office Visit 06/18/2013 9:00[place], [address] 718.42 Of Anna Shah Office Visit 02/12/2013 11:00a [facility] [place], 78865 414.01 M.DLibra 794.31 401.1 272.4 V72.81 Office Visit 12/13/2012 11:00a [facility] [place] 63678 718.42 Of Anna Ca M.D. Office Visit 08/19/2012 7:59p [facility] Christine Pearl M.D. 37467 427.69 Assoc, Hospitalists 785.1 414.01 276.8 Office Visit 08/19/2012 10:30a [facility] SL[place], 55969 414.01 M.DLibra 794.31 401.1 Office Visit 07/31/2012 4:00p [facility] [place], 87718 414.01 M.DLibra 272.4 401.1 V45.82 V72.81 Office Visit 07/08/2012 8:15[place], [address] 718.43 Of Anna Shah Office Visit 12/05/2011 10:00a [facility] Mery Porter, N.PLibra 92991 414.01 AT [facility]94.31 401.1 272.4 Office Visit 10/18/2011 9:00[place] [address] 718.43 Of Anna Shah Office Visit 10/10/2011 10:40a [facility] [place], 01579 414.01 M.DLibra 794.31 401.1 272.4 Office Visit 06/16/2011 11:40a [facility] [place], 18297 414.01 M.D. 401.1 794.31 V45.82 V72.81 Office Visit 01/09/2011 4:00p [facility] Qutaybeh S. haydah, 39390 414.01 M.D. 401.1 272.4 794.31 786.09 V45.82 Office Visit 12/30/2010 2:24p [facility] Janae Ramon D.O. 04017 414.01 401.1 V45.01 272.4 786.50 Office Visit 12/30/2010 9:59a [facility] Qutaybeh S. haydah, 67031 414.01 M.D. 401.1 v45.01 272.4 786.50 Office Visit 12/29/2010 2:23p [facility] Janae Ramon D.O. 71468 786.09 414.01 Office Visit 12/29/2010 12:00p [facility] Qutaybeh S. haydah, 76623 794.31 M.D. 414.01 401.1 786.50 272.4 Office Visit 12/27/2010 4:15p [facility] Qutaybeh S. haydah, 17819 794.31 M.D. Office Visit 12/27/2010 3:45p [facility] Qutaybeh S. haydah, 31049 250.00 M.D. 401.9 786.50 Office Visit 05/26/2010 9:30a [facility] Tomas Bass M.D. 07836 726.69 C.M.A. 682.6 Plan of Care Future Appointment(s):07/10/2018 8:45 am - Shani Bernal M.D. at [facility]06/25/2018 2:30 pm - Austin Head PA-C at [facility]06/25/2018 2:30 pm - RASHAD Garcia at [facility]07/17/2018 8:00 am - Aaron Izquierdo M.D. at [facility]06/25/2018 2:30 pm - Shani Bernal M.D. at [facility]06/19/2018 - Shani Bernal M.D.M16.12 Unilateral primary osteoarthritis , left hipFollow up:Follow up: 2 weeks after wnqxmgbV42.552 Pain in left hip
--- OUTSIDE RECORDS SUMMARY | 2018-06-25 13:33 | XMS REPORT ---
:1950 External Reference #:[id number] Author Organization [facility] Address [address] [place] [address] [place] [address] Phone [phone] Care Team Providers Name Role Phone Julio Almeida MD Primary Care Physician Unavailable Payers Type Date Identification Numbers Payment Provider Subscriber Commercial Policy Number: [id number] [employer] Heather Hernandez Kezia PayID: [id number] [address] [place] [address] Medigap Part B Expires: Policy Number: [employer] Heather Kezia 2014 [id number] Group Number: [id number] [address] PayID: [id number] [place] [address] Problems Date Description Provider Status Onset: 06/16/2011 [...] / Active Capsules 5mg 90caps 1 by Marthataybmiki 0000 mouth S. every Maghaydah, day M.D. Metoprolol / Active Tablets 50mg 90tabs 1 by Qutaybeh Tartrate 0000 mouth S. every Maghaydah, day M.D. Multivitamins / Active Tablets 30tabs 1 po qd Unknown 0000 Simvastatin 00/ Active Tablets 40mg 45tabs 1/2 po Qutaybeh 0000 every S. other Maghaydah, day M.D. Tamsulosin HCL / Active Capsules 0.4mg 90caps 1 po qd Unknown 0000 Finasteride / Active Tablets 5mg 90tabs 1 po qd Unknown 0000 Acetaminophen / Active Tablets 500mg 2 tabs Unknown Extra Strength 0000 by mouth every 8 hours as needed for pain or fever Nabumetone 04/27/ Hx Tablets 500mg 180tab take one M06.4 Aaron 2015 - s capsule/ Timbo, 04/22/ tablet M.D. 2017 by mouth twice daily as needed for pain, please stop other nsaids Pantoprazole 10/06/ Hx Tablets DR 20mg 90tabs 1 by Aaron Sodium 2014 - mouth Timbo, 03/19/ every M.D. 2018 other day Nitroglycerin 09/25/ Hx Tablets 0.4mg 50tabs 1 sl Qutaybeh 2013 - Sub q5mins S. 03/18/ x3 prn Bay, 2018 for M.D. chest pain Percocet 02/12/ Hx Tablets 5-325mg 60tabs 1-2 po Vianey 2013 - q4-6h Pugh-You 09/25/ prn pain Pablo mar 2013 Plavix 01/09/ Hx Tablets 75mg 90tabs 1 po qd Qutaybeh 2010 - S. 07/31/ Bay, 2011 M.DLibra Simvastatin / Hx Tablets 40mg 45tabs 1 po qhs Qutaybeh - S. 12/04/ Bya, 2011 M.D. Aspir-81 / Hx Tablets DR 81mg 1 po qd Unknown 0000 - 2017 Calcium / Hx Tablets 600-125mg 1 po qd Unknown Carbonate 0000 - 2010 Omeprazole / Hx Capsules 30caps 1 po qd Unknown 0000 - DR 2010 Protonix / Hx Tablets DR 40mg 90tabs 1 po [...] 05/28/ times a 2017 day as needed Vital Signs Date Vital Result Comment 05/29/2018 Height 69 inches 5'9" Weight 168.00 [...] Result H/L Range Note Laboratory test finding 05/11/2016 Lyme Disease Serology Negative Negative 1 Creatine Kinase(CK) 76 U/L 10-223 2 TSH (Thyroid Stim Horm) 1.76 mcIU/mL 0.34-5.60 3 Vitamin D 1,25 And Vitamin D,2 05/11/2016 Vitamin D Total 25(Oh) 38.6 ng/mL 30-50 4 Vitamin D, 1,25 Dihydroxy 139 pg/mL 18-64 5 Vitamin B12 And Folate Serum 05/11/2016 Vitamin B12 410 pg/mL 180-914 6 Folic Acid (Folate) > 20.00 ng/mL >3.99 7 Laboratory test finding 05/11/2016 C Reactive Protein 1.70 mg/L < 5.00 8 Comp Metabolic Panel 05/11/2016 Sodium 136 mmol/L [...] Egfr Non- 103.9 >60 Egfr 133.6 >60 9 CBC Auto Diff 05/11/2016 White Blood Count [...] Converting Enzyme 9 U/L 8 - 53 10 Anti Nuclear Antibody 0.6 U 11 Rheumatoid Factor <15 IU/mL <15 12 Uric Acid 5.6 mg/dL 4.4-7.6 13 Cyclic Citrullinated Pep Igg <15.6 U 14 Anca AB Ser If 05/11/2016 C-Anca Negative Negative P-Anca Negative Negative 15 CBC Auto Diff 05/18/2015 White Blood Count [...] Egfr Non- 101.1 >60 Egfr 130.0 >60 16 Laboratory test finding 05/18/2015 Erythrocyte Sed Rate 10 mm/Hr 0-40 C Reactive Protein < 1.00 mg/L < 5.00 17 Rheumatoid Factor <15 IU/mL <15 18 Cyclic Citrullinated Pep Igg <15.6 U 19 Hla B27 05/18/2015 Hla B27 Negative 20 Hla B27 Interp See Comment 21 Inr/Protime 09/26/2013 Inr 0.89 0.85-1.06 Basic Metabolic [...] Egfr Non- 97.0 >60 Egfr 124.8 >60 22 CBC Auto Diff 09/26/2013 White Blood Count [...] 02/27/2013 S RUN DATE: <SEE NOTE> 1 Serologic response to B. burgdorferi infection is not detected, but cannot rule out early infection during which low or undetectable antibody levels to B. burgdorferi may be present. If clinically indicated, a new serum specimen should be submitted in 7-14 days. Test Performed by: [address] [address] Tank Car Repairer: Fransico Purcell II, M.D., Ph.D. 2 Please check labs this week 3 Please check labs this week 4 Please check labs this week 5 ADDITIONAL INFORMATION This test was developed and its performance characteristics determined by [facility] in a manner consistent with CLIA requirements. This test has not been cleared or approved by the U.S. Food and Drug Administration. Test Performed by: [place] [address] [employer] Car Repairer: Fransico Purcell II, M.D., Ph.D. 6 Normal Range 180 to 914 Indeterminate Range 145 to 180 Deficient Range <145 7 Please check labs this week 8 Acute inflammation: >10.00 9 Because ethnic data is not always readily [...] 15-29 5 Kidney failure <15 (or dialysis) 10 Test Performed by: [place] [address] [employer] Car Repairer: Fransico Purcell II, M.D., Ph.D. 11 REFERENCE VALUE <=1.0 (Negative) Test Performed by: [place] [address] [employer] Car Repairer: Fransico Purcell II, M.D., Ph.D. 12 Test Performed by: [place] [address] [employer] Car Repairer: Fransico Purcell II, M.D., Ph.D. 13 Please check labs this week 14 REFERENCE VALUE <20.0 (Negative) Test Performed by: [place] [address] [employer] Car Repairer: Fransico Purcell II, M.D., Ph.D. 15 Negative for cANCA and pANCA patterns by immunofluorescence. ADDITIONAL INFORMATION This test was developed and its performance characteristics determined by [facility] in a manner consistent with CLIA requirements. This test has not been cleared or approved by the U.S. Food and Drug Administration. Test Performed by: [place] [address] [employer] Car Repairer: Fransico Purcell II, M.D., Ph.D. 16 Because ethnic data is not always readily [...] 15-29 5 Kidney failure <15 (or dialysis) 17 Acute inflammation: >10.00 18 Test Performed by: [place] [address] [employer] Car Repairer: Fransico Purcell II, M.D., Ph.D. 19 REFERENCE VALUE <20.0 (Negative) Test Performed by: [facility] - [address] [address] Tank Car Repairer: Fransico Purcell II, M.D., Ph.D. 20 REFERENCE VALUE Not Applicable 21 RESULT: HLA-B27 antigen was not detected. ADDITIONAL INFORMATION Method: Flow Cytometry Performing Laboratory CLIA# [id number] Test Performed by: [address] [address] Tank Car Repairer: Fransico Purcell II, M.D., Ph.D. 22 Because ethnic data is not always readily [...] 15-29 5 Kidney failure <15 (or dialysis) 23 RUN DATE: 03/21/13 [facility] LIVE PAGE 1 RUN TIME: [address] [place] [address] Specimen Inquiry Name: JOSE CAT Jennifer : [address]: Vianey Ca Acct: [id number] Unit: [id number] AGE: 62 Location: OR Re02/27/13 SEX: M Status: DEP SD SPEC: [id number] CHULA: 02/27/13- [facility] [place] DR: Vianey Ca MD REQ: [id number] RECD: 02/27/1342 STATUS: SOUT _ ORDERED: LEVEL [...] is received in formalin labeled Jose Cat, Heterotopic Tissue Left Elbow and consists of multiple bone, cartilage, and soft tissue fragments measuring 5.6 x 3.0 by up to 1.0 cm. in aggregate. Chinese Herbalist sections submitted in A and B after decal times one. MICROSCOPIC DESCRIPTION Signed (signature on file) Izaiah Pradhan MD 1507 END OF REPORT * ML=Testing performed at Main Lab DEPARTMENT OF PATHOLOGY, [address] [place] [address] Izaiah Pradhan M.D. Director [facility] Permit #[id number] Procedures Date CPT Code Description Status 02/27/2014 41129 Rad Exam; Foot Comp Completed 10/01/2013 68949 Left Heart Cath. Incl S/I Coronaries, Angio S/I V Gram Completed If Done 10/01/2013 97908 Cath PLMT&NJX L Ventriculog Img S&I Completed 10/01/2013 57488 Left Health Catheterization W/Inj For Left Completed Ventriculography,S&I 09/26/2013 68160 ECHO Transthorasic Realtime 2D W Doppler & Color Flow Completed Hosp 09/25/2013 75863 EKG Tracing & Interpretation Completed 02/27/2013 10673 Arthroplasty Radial Head W/Implant Completed 02/27/2013 20612 Arthroplasty Radial Head W/Implant Completed 02/27/2013 76826 Remove Implant Radial Head Completed 02/27/2013 72909 Radical Resection Capsule,Soft Tissue&Bone Elbow Completed W/Contr Release 02/27/2013 03629 Radical Resection Capsule,Soft Tissue&Bone Elbow Completed W/Contr Release 02/12/2013 23193 EKG Tracing & Interpretation Completed 08/19/2012 83219 Treadmill Interp/Report Only Completed 08/19/2012 28582 Stress Test Supervsn W/Out I/R Completed 08/19/2012 89900 EKG, Interpretation Only Completed 07/31/2012 29158 EKG Tracing & Interpretation Completed 07/08/2012 39612 Rad Exam; Elbow, Comp Completed 12/05/2011 49038 EKG Tracing & Interpretation Completed 10/10/2011 04877 EKG Tracing & Interpretation Completed 06/16/2011 74266 EKG Tracing & Interpretation Completed 01/09/2011 49978 EKG Tracing & Interpretation Completed 12/30/2010 05947 EKG, Interpretation Only Completed 12/29/2010 35663 Left Heart Cath. Incl S/I Coronaries, Angio S/I V Gram Completed If Done 12/29/2010 25471 Cath PLMT&NJX L Ventriculog Img S&I Completed 12/29/2010 28554 EKG, Interpretation Only Completed 12/29/2010 88549 Ptca W/Intracor Stent Completed 12/29/2010 97533 IV Rx Trancath Therapy(Nitro/Munira) Completed 12/28/2010 07608 ECHO Transthoracic, Real-Time 2D With Doppler And Color Completed Flow 12/27/2010 61140 ECHO Stress Test Incl Perf Contiuous ekg Monitoring Completed W/Phys Superv 12/27/2010 14750 EKG Tracing & Interpretation Completed Encounters Type Date Location Provider CPT E/M Dx Office Visit 04/22/2018 [facility] Aaron Izquierdo M.D. 80502 M06.4 8:20a Of Naima M16.12 M25.561 R73.09 R20.8 Office Visit 03/19/2018 4:00p [facility] Faisal Fernandes, 17633 E78.5 Services Of Naima Shah Z86.73 Z79.02 Office Visit 03/15/2018 8:00a [facility] Of Shani Bernal M.D. 92208 M25.561 C.M.A. M25.461 M17.11 M25.552 M16.12 Office Visit 02/07/2018 10:56a [facility], Guero Vickers, 23965 M54.12 Hospitalists Pablo R20.0 I10 Office Visit 02/07/2018 7:00a [facility] Faisal Fernandes, 19649 I63.9 Pablo I10 E78.5 R73.09 Office Visit [facility]/06[facility]2018 [facility] [place], 18920 I63.9 Hospitalists Pablo I25.10 I10 R20.0 Office Visit 05/25/2016 8:40a [facility] Aaron Izquierdo 23480 M51.36 Of Naima Shah M70.62 Z79.899 M79.1 Office Visit 04/27/2016 8:00a [facility] Of Aaron Izquierdo, 79664 M06.4 [facility] Jarrett.Shira Z79.899 M51.16 R20.8 M79.1 Office Visit 05/17/2015 2:40p [facility] Craig Suarez, 04418 715.09 Of [facility] Pablo 715.05 722.93 722.91 715.22 786.09 719.49 Office Visit 03/16/2014 8:00a [facility] Tanner Ly M.D. 93079 719.90 Of [facility] 715.09 Office Visit 02/27/2014 11:00a [facility] [place], [address] 825.25 CDemetrius Shah 825.25 Office Visit 10/09/2013 11:20a [facility] [place], 50651 786.50 M.DLibra 414.01 401.1 272.2 Office Visit 10/01/2013 11:30a [facility] [place], 76982 414.01 M.D. 786.50 786.05 414.9 Office Visit 09/25/2013 9:00a [facility] [place], 04283 401.1 M.D. 272.2 414.01 786.50 785.1 786.05 Office Visit 06/18/2013 9:00[place] [address] 718.42 Of Anna Shah Office Visit 02/12/2013 11:00a [facility] [place], 55030 414.01 M.D. 794.31 401.1 272.4 V72.81 Office Visit 12/13/2012 11:00a [facility] [place]ian[place] 66914 718.42 Of Anna Ca M.D. Office Visit 08/19/2012 7:59p [facility] Christine Pearl M.D. 00711 427.69 [facility] Hospitalists 785.1 414.01 276.8 Office Visit 08/19/2012 10:30a [facility] Qutaybeh S. Maghaydah, 45643 414.01 M.D. 794.31 401.1 Office Visit 07/31/2012 4:00p [facility] Qutaybeh S. Maghaydah, 60893 414.01 M.D. 272.4 401.1 V45.82 V72.81 Office Visit 07/08/2012 8:15[place], [address] 718.43 Of Anna Shah Office Visit 12/05/2011 10:00a [facility] Berny Holland.Temo 097[address] 414.01 [place] [facility] 794.31 401.1 272.4 Office Visit 10/18/2011 9:00[place], [address] 718.43 Of Anna Shah Office Visit 10/10/2011 10:40a [facility] Qutaybeh S. Maghaydah, 62244 414.01 M.D. 794.31 401.1 272.4 Office Visit 06/16/2011 11:40a [facility] Qutaybeh S. Maghaydah, 25474 414.01 M.D. 401.1 794.31 V45.82 V72.81 Office Visit 01/09/2011 4:00p [facility] Qutaybeh S. Maghaydah, 09413 414.01 M.D. 401.1 272.4 794.31 786.09 V45.82 Office Visit 12/30/2010 2:24p [facility] Janae Ramon D.O. 47794 414.01 401.1 V45.01 272.4 786.50 Office Visit 12/30/2010 9:59a [facility] Qutaybeh S. Maghaydah, 46718 414.01 M.D. 401.1 v45.01 272.4 786.50 Office Visit 12/29/2010 2:23p [facility] Janae Ramon D.O. 32087 786.09 414.01 Office Visit 12/29/2010 12:00p [facility] [place], 73407 794.31 M.D. 414.01 401.1 786.50 272.4 Office Visit 12/27/2010 4:15p [facility] [place], 79869 794.31 M.D. Office Visit 12/27/2010 3:45p [facility] [place]ata [place], 38816 250.00 M.D. 401.9 786.50 Office Visit 05/26/2010 9:30a [facility] Of Tomas Bass M.D. 69535 726.69 C.M.A 682.6 Plan of Care Future Appointment(s):06/25/2018 3:30 pm - Austin Head PA-C at [facility]06/25/2018 3:30 pm - RASHAD Garcia at [facility]07/17/2018 8:00 am - Aaron Izquierdo M.D. at [facility]06/19/2018 8:00 am - Shani Bernal M.D. at [facility]06/25/2018 3:30 pm - Shani Bernal M.D. 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
[2018-06-25] MEDS ORDERED: Gabapentin CAP(*) 300 MG ONE (13:42)
[2018-06-25] MEDS ORDERED: Ondansetron ODT TAB* 4 MG ONE ×2 (13:42→13:54)
[2018-06-25] MEDS ORDERED: Famotidine IV* 10 MG/ML 2 ML (20 mg) ONE (13:42)
[2018-06-25] MEDS ORDERED: ceFAZolin 2 GM PREMIX in ORs 2 GM/50 ML BAG IVPB ONE (13:43)
[2018-06-25] MEDS ORDERED: Dexamethasone TAB* 4 MG ONE (13:43)
[2018-06-25] MEDS ORDERED: Bupivacaine 0.5% W/EPI SDV* 30 ML VIAL ONE (15:29)
[2018-06-25] MEDS ORDERED: KETAMINE HCL* 50 MG/ML 10 ML VIAL ONE (15:30)
[2018-06-25] MEDS ORDERED: Midazolam* 1 MG/ML 5 ML VIAL (5 MG) ONE (15:30)
[2018-06-25] MEDS ORDERED: fentaNYL* 50 MCG/ML 2 ML VIAL (100 MCG VIAL) ONE (15:30)
[2018-06-25] MEDS ORDERED: Bupivacaine 0.5% SDV PF* 30ML VIAL ONE (15:41)
--- NOTE | 2018-06-25 17:53 | RAD ---
HISTORY: LEFT TOTAL HIP REPLACEMENT COMPARISONS: March 15, 2018 VIEWS: 1 , portable intraoperative view of the left hip during arthroplasty FINDINGS: Limited single portable intraoperative view of the pelvis to hip arthroplasty demonstrates a left hip arthroplasty with a temporary femoral sizing component. IMPRESSION: LIMITED PORTABLE INTRAOPERATIVE VIEW OF THE HIP DURING ARTHROPLASTY.
[2018-06-25] MEDS ORDERED: Phenylephrine INJ* 10 MG/ML 1 ML VIAL (10 MG) ONE (18:29)
[2018-06-25] MEDS ORDERED: Propofol* 500 MG/50 ML BTL ONE (18:29)
[2018-06-25] MEDS ORDERED: Lidocaine 2% PF * 5 ML VIAL ONE (18:29)
[2018-06-25] MEDS ORDERED: Ketorolac INJ* 30 MG/ML 1 ML VIAL ONE (18:29)
[2018-06-25] MEDS ORDERED: diPHENhydraMINE IV* 50 MG/ML 1 ml VIAL (BENADRYL) IV PRN (18:49)
[2018-06-25] MEDS ORDERED: Ondansetron INJ* 2 MG/ML VIAL IV PRN (18:49)
[2018-06-25] MEDS ORDERED: oxyCODONE TAB* 5 MG TAB PO PRN (18:49)
[2018-06-25] MEDS ORDERED: oxyCODONE/Acetamin 5/325 MG* TAB PO PRN (18:49)
[2018-06-25] MEDS ORDERED: Polyethylene Glycol 3350* 17 GM PACKET PO PRN (18:49)
[2018-06-25] MEDS ORDERED: Morphine INJ* 2 MG/ML 1 ML SYRINGE (TWO MG - NEW SYRINGE VERSION) IV PRN (18:49)
[2018-06-25] MEDS ORDERED: Magnesium Hydroxide LIQ* 30 ML UDC PO PRN (18:49)
[2018-06-25] MEDS ORDERED: Cyclobenzaprine TAB* 10 MG PO PRN (18:49)
[2018-06-25] MEDS ORDERED: Acetaminophen TAB* 325 MG PO PRN (18:49)
[2018-06-25] MEDS ORDERED: ceFAZolin 1 GM in Dextrose (*) 1 GM/50 ML BAG IVPB SCH (19:00)
[2018-06-25] MEDS ORDERED: Warfarin TAB(*) 6 MG PO ONE (19:00)
[2018-06-25] MEDS: Magnesium Hydroxide LIQ* 30 ML UDC PO SCH (22:52)
[2018-06-25] MEDS: Docusate CAP* 100 MG PO SCH (22:52)
[2018-06-26] MEDS: ceFAZolin 1 GM* X 3 DOSES POST-OP Q8H (AddVan) IVPB SCH ×6 (00:21→16:46)
[2018-06-26] MEDS ORDERED: ceFAZolin 1 GM in Dextrose (*) 1 GM/50 ML BAG IVPB SCH (00:30)
[2018-06-26] MEDS: oxyCODONE/Acetamin 5/325 MG* TAB PO PRN ×4 (05:38→20:20)
--- NOTE | 2018-06-26 05:45 | CONS ---
CC: Dr. Almeida; Dr. Bernal.* CONSULTATION REPORT: DATE OF ADMISSION: 06/25/18 DATE OF CONSULT: 06/25/18 PRIMARY CARE PHYSICIAN: Dr. Almeida. REASON FOR MEDICAL CONSULTATION: Evaluation of medical management of comorbid medical problems. REQUESTING PHYSICIAN CONSULT: Dr. Bernal. MY ATTENDING PHYSICIAN WHILE IN THE HOSPITAL: Dr. Salmeron (report dictated by Antonio Alba NP) HISTORY OF PRESENT ILLNESS: I referred you Dr. Bernal's HPI for further details. In short, Mr. Mast is a 57-year-old male patient that presented to Dr. Bernal's service today for an elective left total hip arthroplasty. He had been dealing with left hip pain for some time. He had failed conservative therapy and elected to proceed with total hip. He underwent the procedure today. He is evaluated in the PACU. He states he is feeling well. He denies having any chest pain or shortness of breath. Denies any abdominal pain. He states he cannot feel his lower extremities just yet to move them, he did have spinal anesthesia. He denies having any abdominal pain. He does not feel nauseous. He states he does feel cold. He does carry a significant history of BPH, hypertension, history of CVA, GERD, and CAD. He is prediabetic, history of hypertension, and osteoarthritis. Because of these medical complexities, we were asked to evaluate in consult. PAST MEDICAL HISTORY: 1. CVA. 2. Hypertension. 3. GERD. 4. CAD. 5. BPH. 6. Prediabetes. 7. Hypertension. 8. Arthritis. PAST SURGICAL HISTORY: 1. He has had 6 elbow surgeries. 2. Cardiac catheterization. 3. Tonsillectomy. 4. Lymph node biopsy. 5. Today, he had a left total hip arthroplasty. MEDICATIONS: Home meds according to the preop list include: 1. Flomax 0.4 mg p.o. daily he actually takes that in the morning on her neck. 2. Zocor 10 mg p.o. every other day. 3. Simethicone 1 capsule p.o. as needed daily. 4. Zantac 150 mg p.o. b.i.d. 5. Altace 5 mg p.o. daily. 6. Multivitamin 1 tablet daily. 7. Metoprolol tartrate 50 mg at bedtime. 8. Proscar 5 mg daily. 9. Plavix 75 mg daily. 10. Tylenol extra strength 2 tablets p.o. t.i.d. as needed. ALLERGIES: His allergy to medication is include no known drug allergies. FAMILY HISTORY: His mother from respiratory complications from an unspecified respiratory disease. Father had a history of CVA. SOCIAL HISTORY: He does not smoke, rarely drinks alcohol. He is retired. Surrogate decision maker is his . REVIEW OF SYSTEMS: There is no documented fever. He denied having any significant weight change. There is no double vision. He denies having any ear discharge. There is no rhinorrhea. There is no sore throat. No thyroid enlargement. Denies having any chest pain. There is no orthopnea. There is no nocturnal dyspnea. He denied having any abdominal pain. There was no nausea , no vomiting, no dysuria, no frequency, no seizure, and no loss of conscious. Review of 14 systems completed, all is negative. PHYSICAL EXAM: Blood pressure 126/66, pulse 61, respirations 16, O2 sat 96%, temperature 97.9. General: At this time, Mr. Mast is a 67-year-old male patient. He is sitting in the PACU bed. He does not appear to be in acute distress. He appears to be well nourished, well developed. HEENT: Head: Atraumatic, normocephalic. Eyes: EOMs are intact. Sclerae anicteric, not pale. Neck: Supple. Throat: Oral mucosa appears to be moist. No oropharyngeal erythema. Heart: Sounds S1, S2. He had a regular rate and rhythm. He had no murmur rubs or gallops. Lungs: Clear to auscultation bilaterally. No wheezes, rales, or rhonchi. Abdomen: Soft. It was flat. It was nontender. Bowel sounds are present. Extremities: Pulses were 2+ throughout. He is not moving the lower extremities just yet due to spinal anesthesia. He is moving the upper extremities with 5/5 strength. Neurological : He is awake, alert and oriented x3. No gross focal deficits. Skin was grossly intact with exception he has an incision to the left hip, which was covered with an ABD dressing, is clean, dry and intact. DIAGNOSTIC STUDIES/LAB DATA: Labs preoperatively WBC is 6.5, RBC of 5.14, hemoglobin 16.0, hematocrit of 44, and platelet count of 198. His INR was 0.84. His sodium is 136, potassium is 4, chloride 105, bicarb 26, BUN 18, creatinine 0.75, glucose 109, A1c was 6.2. AST 17, ALT 17, urine preop showed 1 + blood, 1+ rbc present, squamous epithelial cells. He did have a preoperative EKG, which does show a normal sinus rhythm, rate of 76. He had no ST elevation or T-wave inversions noted. He had a preoperative chest x- ray showed no evidence for acute disease. Old medical records reviewed. ASSESSMENT AND PLAN: Mr. Mast is a 67-year-old male patient coming into the orthopedic services today for an elective left total hip arthroplasty. We were asked to evaluate in consult due to his medical complexity. Our recommendation at this point: 1. Status post left total hip arthroplasty. I will defer the management to Dr. Bernal and her team. 2. History of cerebrovascular accident. I would recommend continuing statin therapy and getting him back on his Plavix as soon as possible. The Plavix has already been ordered to start tomorrow. 3. Hypertension. I will go ahead and hold his RISSA inhibitor. We will restart this when his blood pressure in the first 24 to 48 hours postoperatively, pressures here had been running in the 120 systolic. We will continue his beta- oliverio with hold parameters for his heart rate. He has had a heart rate later on in the 50s in the PACU, at times dipping down into the upper 40s, we will hold and start this when his heart rate is over 60. 4. Gastroesophageal reflux disease. Continue meds as prescribed. 5. Coronary artery disease. Continue his Plavix and statin, beta-oliverio therapy. 6. Benign prostatic hyperplasia. Continue meds as prescribed. 7. History of prediabetes. We will check his fingersticks daily in the morning. He does not currently take any medications for this, we will monitor. 8. Arthritis. Follow with his PCP. 9. Hyperlipidemia. Continue statin therapy. 10. DVT prophylaxis: We will defer to the primary team. 11. Code status: Full code. 12. Fluid, electrolyte, and nutrition: I would recommend a heart healthy diet. TIME SPENT: On the consult 60 minutes, greater than half the time was spent face- to-face with the patient obtaining my history and physical, other half of the time was spent going over the plan of care with the patient and implementing the plan of care. I discussed the plan of care with my attending, Dr. Salmeron, she is in agreement. ANTONIO ALBA, KAYODE [id number]/[facility] #: [id number] CAITLIN
[2018-06-26 05:53] LABS: Hematocrit 34 % (42-52); Hemoglobin 11.4 g/dl (14.0-18.0); Mean Platelet Volume 7.6 um3 (7.4-10.4); Platelet Count 160 10^3/ul (150-450)
[2018-06-26 06:16] LABS: EGFR Non-African American 98.7 (>60)
--- NOTE | 2018-06-26 07:15 | RAD ---
INDICATION: Status post total left hip replacement surgery. COMPARISON: Comparison is made with a prior x-ray study of the left hip from March 15, 2018. TECHNIQUE: An AP view of the pelvis and frontal and lateral views of the left hip were obtained. FINDINGS: The patient is status post total left hip replacement surgery. The bones and prostheses are in normal alignment. There is a small amount of air within the lateral soft tissues consistent with the patient's recent surgery. IMPRESSION: STATUS POST TOTAL LEFT HIP REPLACEMENT SURGERY.
--- NOTE | 2018-06-26 07:22 | RAD ---
INDICATION: Status post total left hip replacement surgery. COMPARISON: Comparison is made with a prior study from March 15, 2018. TECHNIQUE: An AP view of the pelvis was obtained. FINDINGS: The patient is status post total left hip replacement surgery. The bones and prostheses are in normal alignment. There is a small amount of air within the lateral soft tissues consistent with the patient's recent surgery. There is a bladder catheter in place. IMPRESSION: STATUS POST TOTAL LEFT HIP REPLACEMENT SURGERY. R1
[2018-06-26] MEDS: Finasteride TAB* 5 MG PO SCH (08:40)
[2018-06-26] MEDS: Magnesium Hydroxide LIQ* 30 ML UDC PO SCH ×2 (08:40→20:20)
[2018-06-26] MEDS: Tamsulosin CAP* 0.4 MG PO SCH (08:40)
[2018-06-26] MEDS: Docusate CAP* 100 MG PO SCH ×2 (08:40→20:20)
[2018-06-26] MEDS: Clopidogrel TAB* 75 MG PO SCH (08:40)
--- NOTE | 2018-06-26 10:53 | PN ---
Progress Note - Progress Note Date of Service: 06/26/18 SOAP: Subjective: POD #1 Left JOSE ANGEL. Doing ok. Still with residual left leg weakness from nerve block, unable to ambulate with PT. Denies CP/SOB, f/c, n/v or calf pain. Objective: Vitals: Temp Pulse Resp BP Pulse Ox 97.9 F 77 18 125/73 99 06/26/18 07:14 06/26/18 07:14 06/26/18 09:34 06/26/18 07:14 06/26/18 08:00 Gen: A&Ox3, NAD at rest Left hip: Dressing C/D/I. +f/e at ankle and MTPs. Unable to flex at hip or extend at knee. Sensation intact, DP 2+ Labs: Laboratory Results - last 24 hr 06/25/18 06/25/18 06/26/18 13:52 14:07 05:22 Hgb 11.4 L Hct 34 L Plt Count 160 MPV 7.6 INR (Anticoag Therapy) Sodium Potassium Chloride Carbon Dioxide Anion Gap BUN Creatinine Est GFR ( Amer) Est GFR (Non-Af Amer) BUN/Creatinine Ratio Glucose POC Glucose (mg/dL) 102 H Calcium Hepatitis C Antibody Nonreactive 06/26/18 06/26/18 06/26/18 05:22 05:22 07:28 Hgb Hct Plt Count MPV INR (Anticoag Therapy) 1.00 Sodium 135 Potassium 4.4 Chloride 102 Carbon Dioxide 29 Anion Gap 4 BUN 19 Creatinine 0.78 Est GFR ( Amer) 119.4 Est GFR (Non-Af Amer) 98.7 BUN/Creatinine Ratio 24.4 H Glucose 157 H POC Glucose (mg/dL) 162 H Calcium 8.6 Hepatitis C Antibody Assessment: POD #1 Left JOSE ANGEL Plan: INR 1.00, Coumadin 6 mg tonight Cont PT/OT as nerve block wears off
--- NOTE | 2018-06-26 11:31 | OP ---
DATE OF OPERATION: 06/25/18 - ROOM #342 DATE OF : 46 SURGEON: Shani Bernal MD PARENT AIDE: RASHAD Mejia ANESTHESIOLOGIST: Dr. Aguilera. ANESTHESIA: Spinal. PRE-OP DIAGNOSIS: Severe end-stage degenerative osteoarthritis of the left hip joint. POST-OP DIAGNOSIS: Severe end-stage degenerative osteoarthritis of the left hip joint. OPERATIVE PROCEDURE: Left total hip arthroplasty. HARDWARE USED: This is uncemented Lynx total hip arthroplasty hardware. For the cup, a 54E Tritanium hemispherical cluster hole shell with a single 20- mm screw. For the liner, a Trident X3 10-degree polyethylene 36E liner for a 20 -mm screw. For the stem, an Accolade II size 5 with a 127-degree neck. For the head, a Biolox delta ceramic V40 femoral head 36 +0. BRIEF HISTORY/INDICATIONS: Mr. Mast is a 67-year-old gentleman with years of increasingly severe left hip pain. His radiographs showed [id number] arthritis. He failed conservative treatment with antiinflammatories, pain medications, intraarticular injections, and physical therapy. Due to continued pain and decreased quality of life, he elected to undergo left total hip arthroplasty. Informed consent was obtained from the patient. He understood the risks of surgery included but were not limited to bleeding, infection, damage to nearby structures, continued pain, need for further surgery, infection , nerve palsy, hardware failure or loosening, dislocation, leg length discrepancy, stroke, heart attack, blood clot, and . He wished to proceed. INTRAOPERATIVE FINDINGS: Intraoperatively, the patient was noted to have severe end-stage arthritis of the left hip joint. He had complete loss of cartilage along the femoral head and acetabulum. Significant osteophyte formation around the acetabulum. DESCRIPTION OF PROCEDURE: Mr. Mast was identified in the preanesthesia unit. His left lower extremity was marked as the correct operative site. Informed consent was signed and placed in the chart. The patient was taken to the operating room and placed under spinal anesthesia. A Duke catheter was placed without difficulty. The patient was placed in the right lateral decubitus position on the pegboard. All bony prominences were well padded. Left lower extremity was prepped and draped in the usual sterile fashion. Preop time-out was made to correctly identify the patient, side and site. Appropriate perioperative antibiotics were given within 1 hour of incision. A 12-cm posterior hip incision was made with a 10 blade, carried down to the lateral fascia layer. Lateral fascia layer was incised in line with the skin incision. Charnley retractor was placed. The piriformis and conjoint tendons were identified along the posterolateral femur. These were elevated with electrocautery and tagged with #5 Ethibond. Electro-cautery was then used to make a standard posterolateral capsular flap and this was also tagged with #5 Ethibond. The hip was carefully dislocated. Lesser troch to center of the femoral head measured 62 mm. Oscillating saw was used to make the appropriate femoral neck cut and the femoral head was removed. After appropriate placement of retractors, the acetabulum was well visualized. Long-handled knife was used to sharply remove any remaining labrum from the acetabular rim. The acetabulum was sequentially reamed up to a size 53. The 53 reamer had established a bleeding subchondral bleeding bone bed. The 53 trial had excellent fit and stability with appropriate anteversion and abduction angle. Final implant chosen was a Tritanium 54E cluster hole shell. This was impacted into the acetabulum without difficulty. There was excellent stability, appropriate anteversion and abduction angle. A single 20-mm screw was placed in the superoposterior quadrant for extra stability. The polyethylene liner chosen was a Trident X3 36E 10-degree elevated liner. This was impacted into the acetabulum. Stability of the liner was checked and rechecked and noted to be stable. Next, attention was turned to preparation of the femoral canal. A canal finder was used to enter the proximal femur. The femoral canal was sequentially broached up to a size 5. Size 5 broach had excellent fit with appropriate anteversion. A 127- neck trial was chosen as well as the 36 +0 head trial. The lesser troch to the center of the femoral head measured 62 mm. The hip was reduced and taken through a range of motion. The hip was stable in all positions. There was good soft tissue tension and appropriate leg lengths. The trials were removed. Final implant chosen was an Accolade II size 5 with a 127 neck angle. This was impacted into the femoral canal without difficulty. There was good stability and appropriate anteversion. A 36 +0 Biolox delta ceramic V40 femoral head was chosen as the femoral head. This was impacted onto the femoral neck. Lesser troch to the center of the head final measurement was 62-mm. The hip was reduced and taken through a range of motion. The hip was stable in all positions. There was good soft tissue tension and appropriate leg lengths. The hip was copiously irrigated with sterile saline. Previously tagged capsule and tendons were reapproximated to the posterolateral femur through 2 trochanteric drill holes. The lateral fascia layer was closed using interrupted #1 Vicryl. The rest of the incision was closed in a layered fashion using 0 and 2-0 Vicryl. The skin was closed using running 3-0 Monocryl suture and Dermabond. Sterile Adaptic, 4x4's, and paper tape were used to cover the incision. The patient's anesthesia was reversed without difficulty. He was taken to the PACU in stable condition. Intended weightbearing will be weightbearing as tolerated. Intended DVT prophylaxis will be Coumadin with a Lovenox bridge. [id number]/[facility] #: [id number] MTDD
[2018-06-26] MEDS: Enoxaparin(*) 40 MG/0.4 ML SYR SUBCUT SCH (12:11)
--- NOTE | 2018-06-26 16:50 | PN ---
Subjective Date of Service: 06/26/18 Interval History: Patient seen today, doing well, no fever, or chills, pain controlled. He is complaining of decrease sensation and numbness of his left lower leg medially from inner thigh to his ankle medially corresponding to L2-L4 dermatone Past Medical History: Unchanged from Admission Objective Active Medications: Acetaminophen (Tylenol Tab*) 650 mg PO Q8H PRN PRN Reason: PAIN OR TEMPERATURE Atorvastatin Calcium (Lipitor*) 5 mg PO EVERY OTHER DAY [facility] Clopidogrel Bisulfate (Plavix Tab*) 75 mg PO DAILY [facility] Last Admin: 06/26/18 08:40 Dose: 75 mg Cyclobenzaprine HCl (Flexeril Tab*) 5 mg PO TID PRN PRN Reason: SPASMS Last Admin: 06/26/18 02:26 Dose: 5 mg Diphenhydramine HCl (Benadryl Iv*) 25 mg IV Q6H PRN PRN Reason: itching Docusate Sodium (Colace Cap*) 100 mg PO BID [facility] Last Admin: 06/26/18 08:40 Dose: 100 mg Enoxaparin Sodium (Lovenox(*)) 40 mg SUBCUT Q24H [facility] Last Admin: 06/26/18 12:11 Dose: 40 mg Finasteride (Proscar Tab*) 5 mg PO QAM [facility] Last Admin: 06/26/18 08:40 Dose: 5 mg Lactated Ringer's (Lactated Ringers 1000 Ml Bag*) 1,000 mls @ 100 mls/hr IV PER RATE [facility] Last Admin: 06/26/18 07:32 Dose: 100 mls/hr Lactulose (Lactulose*) 30 ml PO Q6H PRN PRN Reason: constipation Magnesium Hydroxide (Milk Of Magnesia Liq*) 30 ml PO BID [facility] Last Admin: 06/26/18 08:40 Dose: 30 ml Magnesium Hydroxide (Milk Of Magnesia Liq*) 30 ml PO Q6H PRN PRN Reason: constipation Metoprolol Tartrate (Lopressor Tab*) 50 mg PO QPM [facility] Morphine Sulfate (Morphine Inj ((Syringe))*) 2 mg IV Q2H PRN PRN Reason: PAIN - SEVERE Ondansetron HCl (Zofran Inj*) 4 mg IV Q6H PRN PRN Reason: nausea Oxycodone HCl (Roxycodone Tab*) 10 mg PO Q4H PRN PRN Reason: PAIN - SEVERE Oxycodone/Acetaminophen (Percocet 5/325 Tab*) 1 tab PO Q4H PRN PRN Reason: PAIN Last Admin: 06/26/18 00:24 Dose: 1 tab Oxycodone/Acetaminophen (Percocet 5/325 Tab*) 2 tab PO Q4H PRN PRN Reason: PAIN Last Admin: 06/26/18 15:24 Dose: 2 tab Polyethylene Glycol/Electrolytes (Miralax*) 17 gm PO DAILY PRN PRN Reason: Constipation Tamsulosin HCl (Flomax Cap*) 0.4 mg PO DAILY RONNY Last Admin: 06/26/18 08:40 Dose: 0.4 mg Warfarin Sodium (Coumadin Tab(*)) 6 mg PO ONCE@1700 RONNY; Protocol Stop: 06/26/18 17:01 Vital Signs - 8 hr 06/26/18 06/26/18 06/26/18 09:34 11:08 12:13 Temperature 98.4 F Pulse Rate 87 Respiratory 18 17 18 Rate Blood Pressure 130/69 (mmHg) O2 Sat by Pulse 100 Oximetry 06/26/18 06/26/18 06/26/18 15:24 15:25 15:44 Temperature 98.2 F Pulse Rate 112 96 Respiratory 18 18 Rate Blood Pressure 134/79 (mmHg) O2 Sat by Pulse 97 Oximetry 06/26/18 16:00 Temperature Pulse Rate Respiratory Rate Blood Pressure (mmHg) O2 Sat by Pulse 97 Oximetry Oxygen Devices in Use Now: None Appearance: awake, alert, no acute distress. Eyes: No Scleral Icterus Ears/Nose/Mouth/Throat: NL Teeth, Lips, Gums, Clear Oropharnyx Neck: NL Appearance and Movements; NL JVP, Trachea Midline Respiratory: Symmetrical Chest Expansion and Respiratory Effort, Clear to Auscultation Cardiovascular: NL Sounds; No Murmurs; No JVD, RRR Abdominal: NL Sounds; No Tenderness; No Distention Extremities: No Edema Skin: No Rash or Ulcers Neurological: Alert and Oriented x 3 Result Diagrams: 06/26/18 05:22 06/26/18 05:22 Assess/Plan/Problems-Billing Assessment: 67 year old male admitted for elective left total hip arthroplasty as he failed conservative outpatient therapy for his OA, with known history HTN, CAD - Patient Problems (1) Status post hip surgery Current Visit: Yes Status: Acute Code(s): Z98.890 - OTHER SPECIFIED POSTPROCEDURAL STATES SNOMED Code(s): 422561583 Comment: - POD # 1 s/p left total arthroplasty - DVT prophylaxis on Warfarin as per ortho - On pain control with oxycodone with bowel regimen Miralax (2) Numbness of left lower extremity Current Visit: Yes Status: Acute Code(s): R20.0 - ANESTHESIA OF SKIN SNOMED Code(s): 926679463 Comment: - He describe parasthesia and weakness of his left lower extremety - This could be still related to his nerve block not completly resolved. I did place call to oro certified lactation counselor Dr. Mullen for update. (3) CAD (coronary artery disease) Current Visit: No Status: Acute Code(s): I25.10 - ATHSCL HEART DISEASE OF [place] CORONARY ARTERY W/O ANG PCTRS SNOMED Code(s): 81735443 Comment: Continue, clopidogrel, metoprolol 50 mg QPM, statin. (4) CVA (cerebral vascular accident) Current Visit: No Status: Acute Code(s): I63.9 - CEREBRAL INFARCTION, UNSPECIFIED SNOMED Code(s): 320055323 Comment: - History of Non-hemorrhagic CVA R post-central gyrus on MRI scan. - Continue clopidogrel (5) HTN (hypertension) Current Visit: No Status: Acute Code(s): I10 - ESSENTIAL (PRIMARY) HYPERTENSION SNOMED Code(s): 12688825 Comment: Ramipril on hold Continue metoprolol 50 mg HS (6) BPH (benign prostatic hyperplasia) Current Visit: Yes Status: Acute Code(s): N40.0 - BENIGN PROSTATIC HYPERPLASIA WITHOUT LOWER URINRY TRACT SYMP SNOMED Code(s): 788524490 Comment: - Continue tamsulosin 0.4 mg daily - Proscar 5 mg PO daily (7) DVT prophylaxis Current Visit: Yes Status: Acute Code(s): JJB4089 - SNOMED Code(s): 965169369 Comment: - On lovenox 40 mg SQ daily - Warfarin to be started tonight
[2018-06-26] MEDS ORDERED: Warfarin TAB(*) 6 MG PO SCH (17:00)
[2018-06-26] MEDS ORDERED: Ramipril CAP* 5 MG PO SCH (18:00)
[2018-06-26] MEDS ORDERED: Tamsulosin CAP* 0.4 MG PO SCH (18:00)
[2018-06-26] MEDS ORDERED: Metoprolol Tartrate TAB* 50 mg PO SCH ×2 (18:00)
[2018-06-26] MEDS: Calcium Carbonate CHEW TAB* 500 MG (TUMS) PO PRN (20:20)
--- NOTE | 2018-06-26 22:21 | PN ---
Progress Note - Progress Note Date of Service: 06/26/18 Note: I saw the patient jarrod. He had some weakness in his leg, in his femoral nerve distribution. This is better and he can bend his leg at the knee. He still has some numbness on the inner aspect of his thigh down to his knee, but not below the knee. This is also getting better. This was probably an abnormally strong block, it is fading and should continue to improve.
[2018-06-27] MEDS: oxyCODONE/Acetamin 5/325 MG* TAB PO PRN ×3 (04:07→12:35)
[2018-06-27 06:14] LABS: Hematocrit 26 % (42-52); INR 1.27 (0.77-1.02); Mean Platelet Volume 7.6 um3 (7.4-10.4); Platelet Count 134 10^3/ul (150-450)
[2018-06-27] MEDS: Clopidogrel TAB* 75 MG PO SCH (08:08)
[2018-06-27] MEDS: Docusate CAP* 100 MG PO SCH (08:08)
[2018-06-27] MEDS: Tamsulosin CAP* 0.4 MG PO SCH (08:08)
[2018-06-27] MEDS: Finasteride TAB* 5 MG PO SCH (08:08)
[2018-06-27] MEDS: Magnesium Hydroxide LIQ* 30 ML UDC PO SCH (08:09)
[2018-06-27] MEDS ORDERED: Atorvastatin* 10 MG TAB PO SCH (09:00)
--- NOTE | 2018-06-27 10:48 | PN ---
Progress Note - Progress Note Date of Service: 06/27/18 SOAP: Subjective: []Patient seen and examined at bedside. He feels much better today and denies any numbness or bucking of his LLE. He was able to participate with physical therapy without difficulty today. Denies CP, SOB, Dizziness or nausea. Has a history of cardiac stents and stoke. Objective: []General: Well appearing, NAD LLE: Left hip dressing changed, incision CDI. Patient stable standing on both LE for dressing change. Able to engage quads to extend knee from sitting position, DF/PF intact. DP2+. Sensation intact distally. Calves supple and nontender without erythema, edema or palpable cords Assessment: []POD #2 Left JOSE ANGEL Plan: INR 1.27 today. lovenox shot before DC, coumadin 8 mg today Cont PT/OT WBAT May resume plavix Monitor HR at rest before DC today Vital Signs Temp 98.5 F 06/27/18 08:45 Pulse 103 06/27/18 08:45 Resp 16 06/27/18 08:45 BP 138/68 06/27/18 08:45 Pulse Ox 98 06/27/18 08:45 Intake & Output 06/26/18 06/27/18 06/27/18 18:59 06:59 18:59 Intake Total 3050 840 360 Output Total 875 550 200 Balance 2175 290 160 Intake: IV Fluids 1570 ABX - CEFAZOLIN 110 LR 1460 Oral 1480 840 360 Output: Urine 875 550 200 Other: Estimated Void Large # Bowel Movements 1 Estimated Stool Amount Large # Voids 1 Laboratory Last Values Hgb 9.0 g/dl (14.0-18.0) L 06/27/18 05:53 Hct 26 % (42-52) L 06/27/18 05:53 Plt Count 134 10^3/ul (150-450) L 06/27/18 05:53 MPV 7.6 um3 (7.4-10.4) 06/27/18 05:53 INR (Anticoag Therapy) 1.27 (0.77-1.02) H 06/27/18 05:53 Sodium 135 mmol/L (135-145) 06/26/18 05:22 Potassium 4.4 mmol/L (3.5-5.0) 06/26/18 05:22 Chloride 102 mmol/L (101-111) 06/26/18 05:22 Carbon Dioxide 29 mmol/L (22-32) 06/26/18 05:22 Anion Gap 4 mmol/L (2-11) 06/26/18 05:22 BUN 19 mg/dL (6-24) 06/26/18 05:22 Creatinine 0.78 mg/dL (0.67-1.17) 06/26/18 05:22 Est GFR ( Amer) 119.4 (>60) 06/26/18 05:22 Est GFR (Non-Af Amer) 98.7 (>60) 06/26/18 05:22 BUN/Creatinine Ratio 24.4 (8-20) H 06/26/18 05:22 Glucose 157 mg/dL (70-100) H 06/26/18 05:22 POC Glucose (mg/dL) 140 mg/dL (70-100) H 06/27/18 07:13 Calcium 8.6 mg/dL (8.6-10.3) 06/26/18 05:22 Hepatitis C Antibody Nonreactive (Nonreactive) 06/25/18 14:07
[2018-06-27] MEDS: Calcium Carbonate CHEW TAB* 500 MG (TUMS) PO PRN (10:58)
[2018-06-27 11:50] VITALS: BP 135/65
[2018-06-27] MEDS: Enoxaparin(*) 40 MG/0.4 ML SYR SUBCUT SCH (12:36)
--- NOTE | 2018-06-28 04:31 | DS ---
AMENDED REPORT NOW INCLUDES DESIGNATED COSIGNER DISCHARGE SUMMARY: DATE OF ADMISSION: 06/25/18 DATE OF DISCHARGE: 06/27/18 PROVIDER: Shani Bernal MD * (DICTATED BY RASHAD PRICE) [employer] ASSEMBLER: RASHAD Mejia PREOP DIAGNOSIS: Severe end-stage degenerative osteoarthritis of the left hip. OPERATIVE PROCEDURE: Left total hip arthroplasty. HISTORY: Mr. Mast is a 67-year-old gentleman with years of increasingly severe left pain. He failed conservative management and elected to undergo a left total hip arthroplasty. HOSPITAL COURSE: The patient was admitted to [facility] on . He underwent a left total hip arthroplasty without complication. He was held briefly in the PACU, transferred to short-stay surgical unit in stable condition. Postop day 1, he was well appearing, in no acute distress. He was unable to flex with the hip or extend the knee. Flexion and extension at the ankle and MTP was intact. Sensation intact distally. He was also seen by Medicine during his stay. Postop day 2, he is well appearing and in no acute distress. Left hip dressing was changed. Incision clean, dry and intact. The patient is stable standing on both feet. Dressing changed. Dorsiflexion and plantar flexion intact. DP 2+, sensation intact distally. Vitals on day of discharge, temp 98.3, pulse rate 86, respiratory rate 16, oxygen saturation 100, blood pressure 135/65. LABORATORY DATA: Hemoglobin 9.0, hematocrit 26, platelets 134, INR 1.27. DISCHARGE MEDICATIONS: 1. Multivitamin. 2. Flomax 0.4 mg p.o. q.p.m. 3. Simvastatin 10 mg every other day. 4. Finasteride 5 mg p.o. q.a.m. 5. Ramipril 5 mg p.o. q.p.m. 6. Metoprolol 50 mg p.o. q.p.m. 7. Clopidogrel 75 mg p.o. daily. 8. Ranitidine 150 mg p.o. b.i.d. 9. Simethicone 125 one cap p.o. once p.r.n. 10. Acetaminophen 500 mg 2 tabs p.o. t.i.d. p.r.n. Max daily dose of Tylenol is 4000 mg from all sources. 11. Docusate 100 mg p.o. b.i.d. 12. Percocet 5/325 one to two tabs every 4 to 6 hours as needed for pain. Max daily dose of 10. 13. Warfarin 2 mg tabs 1 to 3 tabs daily, dose depends on INR. DISCHARGE PLAN: The patient will be weightbearing as tolerated. Hip precautions. Coumadin dosing 06/27/18 of 8 mg, 06/28/18 through 06/30/18 of 4 mg daily, recheck INR 07/01/18. Pain control with Percocet 5/325 one to two tabs every 4 to 6 hours as needed for pain, max daily dose of 10 tabs per day. Follow up with Dr. Bernal in 10 to 14 days. DISCHARGE DISPOSITION: Home. RASHAD PRICE [id number]/[facility] #: [id number] [place]
== END 2018-06-27 12:40 | disposition home or self-care (01) | DRG 470 ==
LOC: AA 13:27 → SSU 20:47
PROVIDERS: ADMIT Orthopaedic Surgery Adult Reconstructive Orthopaedic Surgery; ATTEND Internal Medicine
PROC: 0SRB04A Replacement of Left Hip Joint with Ceramic on Polyethylene Synthetic Substitute, Uncemented, Open Approach (ICD-10-PCS; principal; 2018-06-25 16:00)
DX: M16.12 Unilateral primary osteoarthritis, left hip (principal); I10 Essential (primary) hypertension; K21.9 Gastro-esophageal reflux disease without esophagitis; E11.9 Type 2 diabetes mellitus without complications; I25.10 Atherosclerotic heart disease of native coronary artery without angina pectoris; I66.9 Occlusion and stenosis of unspecified cerebral artery; E78.5 Hyperlipidemia, unspecified; J30.2 Other seasonal allergic rhinitis; N40.0 Benign prostatic hyperplasia without lower urinary tract symptoms; M51.86 Other intervertebral disc disorders, lumbar region; M25.752 Osteophyte, left hip; R20.0 Anesthesia of skin; Z79.01 Long term (current) use of anticoagulants; Z95.5 Presence of coronary angioplasty implant and graft; Z82.3 Family history of stroke; Z23 Encounter for immunization; Z82.49 Family history of ischemic heart disease and other diseases of the circulatory system; Z83.3 Family history of diabetes mellitus; Z79.02 Long term (current) use of antithrombotics/antiplatelets; Z72.89 Other problems related to lifestyle; Z86.73 Personal history of transient ischemic attack (TIA), and cerebral infarction without residual deficits
CPT/HCPCS: 36415; 72170; 80048; 85014; 85018; 85049; 85610; 86803; 90686; A9270-GY; G8978-GP-CJ; G8979-GP-CI; G8987-GO-CI; G8988-GO-CI; G8989-GO-CI; J0690; J1650; J1885; J2250; J2704; J3010; J8540

== ENCOUNTER 2024-06-02 09:01 | Inpatient (IN) ==
[2024-06-02 10:01] LABS: ABS Lymphocytes 0.4 10^3/uL (1.0-4.8); ABS Monocytes 0.7 10^3/uL (0.0-1.1); ABS Neutrophils 8.3 10^3/uL (1.5-7.6); Eosinophil % 0.1 %; Hematocrit 32.9 % (38-53); Hemoglobin 11.2 g/dL (13.2-16.3); Lymphocyte % 4.7 %; Mean Corpuscular Hemoglobin 28.5 pg (27-33); Mean Corpuscular Hgb Conc 34.1 g/dL (31-36); Mean Corpuscular Volume 83.8 fL (80-97); Mean Platelet Volume 7.6 fL (7.5-11.2); Platelet Count 287 10^3/uL (150-450); Red Blood Count 3.93 10^6/uL (4.06-5.63); Red Cell Distribution Width 14.9 % (12-17); White Blood Count 9.5 10^3/uL (3.6-10.2)
[2024-06-02 10:10] LABS: INR 1.19 (0.85-1.14)
[2024-06-02 10:22] LABS: Albumin/Globulin Ratio 1.6 (1-3); Calcium 9.1 mg/dL (8.6-10.3); Creatinine, Serum 1.17 mg/dL (0.67-1.17); Globulin 2.5 g/dL (2-4); Potassium 4.6 mmol/L (3.5-5.0); Total Bilirubin 0.9 mg/dL (0.2-1.0); Total Protein 6.5 g/dL (6.4-8.9)
[2024-06-02 11:19] LABS: High Sensitivity Troponin 1 Hr 6 pg/mL (<20)
[2024-06-02] MEDS: Iohexol 350 (CONTRAST) 500 ML MDV IV ONE (15:00)
[2024-06-02] MEDS ORDERED: Sulfur Hexaflouride MICROSPHR 25 MG VIAL IV PRN ×2 (16:18→18:25)
[2024-06-02 19:28] LABS: Body Fluid Appearance Bloody; Body Fluid Color Red; Body Fluid Source Pericardial Fluid
[2024-06-02 20:08] LABS: Body Fluid Total Nucleated 1212 /mcL
[2024-06-02] MEDS: Lidocaine 1% VIAL 10 MG/ML 30 ML VIAL ONE (20:43)
[2024-06-02] MEDS: Lactated Ringers 1000 ml BAG 1,000 ML IV ONE (20:43)
[2024-06-02 21:07] LABS: Body Fluid Mono 2 %; Body Fluid Total Cells Counted 200
[2024-06-03 04:23] LABS: ABS Lymphocytes 0.7 10^3/uL (1.0-4.8); ABS Monocytes 0.9 10^3/uL (0.0-1.1); ABS Neutrophils 6.3 10^3/uL (1.5-7.6); ABS Nucleated RBC 0.01 10^3/ul; Eosinophil % 0.3 %; Hemoglobin 11.7 g/dL (13.2-16.3); Lymphocyte % 8.8 %; Mean Corpuscular Hemoglobin 28.3 pg (27-33); Mean Corpuscular Hgb Conc 34.6 g/dL (31-36); Mean Corpuscular Volume 82.1 fL (80-97); Mean Platelet Volume 7.1 fL (7.5-11.2); Nucleated Red Blood Cells % 0.1 %/100WBC (0.0-0.8); Platelet Count 254 10^3/uL (150-450); Red Blood Count 4.14 10^6/uL (4.06-5.63); Red Cell Distribution Width 14.6 % (12-17)
[2024-06-03 04:48] LABS: Calcium 8.8 mg/dL (8.6-10.3); Creatinine, Serum 0.79 mg/dL (0.67-1.17); Phosphorus 3.2 mg/dL (2.5-5.0); Potassium 4.2 mmol/L (3.5-5.0); eGFR CKD-EPI 92.6 (>60)
[2024-06-03] MEDS: Enoxaparin 40 MG/0.4 ML SYR SUBCUT SCH (10:12)
[2024-06-03] MEDS ORDERED: Sulfur Hexaflouride MICROSPHR 25 MG VIAL IV PRN (12:18)
[2024-06-04 06:21] LABS: ABS Lymphocytes 0.6 10^3/uL (1.0-4.8); ABS Monocytes 1.1 10^3/uL (0.0-1.1); ABS Neutrophils 5.1 10^3/uL (1.5-7.6); Eosinophil % 0.6 %; Hemoglobin 10.7 g/dL (13.2-16.3); Lymphocyte % 8.3 %; Mean Corpuscular Hemoglobin 27.8 pg (27-33); Mean Corpuscular Hgb Conc 33.4 g/dL (31-36); Mean Corpuscular Volume 83.2 fL (80-97); Mean Platelet Volume 7.5 fL (7.5-11.2); Platelet Count 249 10^3/uL (150-450); Red Blood Count 3.85 10^6/uL (4.06-5.63); Red Cell Distribution Width 14.7 % (12-17); White Blood Count 6.9 10^3/uL (3.6-10.2)
[2024-06-04 07:08] LABS: Anion Gap 9 mmol/L (2-16); Blood Urea Nitrogen 25 mg/dL (6-24); CO2 Carbon Dioxide 23 mmol/L (22-32); Calcium 8.5 mg/dL (8.6-10.3); Chloride 96 mmol/L (101-111); Creatinine, Serum 0.92 mg/dL (0.67-1.17); Glucose 153 mg/dL (70-100); Phosphorus 3.5 mg/dL (2.5-5.0); Potassium 4.5 mmol/L (3.5-5.0); Sodium 128 mmol/L (135-145); eGFR CKD-EPI 86.7 (>60)
[2024-06-04 07:12] LABS: CRP High Sensitivity > 80.00 mg/L (<2.00)
[2024-06-04 09:42] LABS: Erythrocyte Sed Rate 50 mm/Hr (0-19)
[2024-06-04] MEDS ORDERED: Morphine 2 MG/ML SYRINGE IV PRN ×2 (13:42)
[2024-06-04 16:34] VITALS: BP 132/91
[2024-06-05] MEDS ORDERED: Influenza Vaccine *TRI* 2024-25* 0.5 ML SYRINGE IM ONE (09:00)
== END 2024-06-04 16:45 | disposition short-term general hospital (02) | DRG 314 ==
LOC: ED 09:01 → EDHOLD 09:01 → ICU 17:00 → SUATTDRO 06-03 07:50 → MEDTELE 06-03 17:36
PROVIDERS: ADMIT Internal Medicine Critical Care Medicine; ATTEND Internal Medicine Critical Care Medicine